=== PATIENT | male | born 1955 | race Two or more races ===

== ENCOUNTER 2016-09-29 05:05 | Inpatient (IN) | payer MEDICAID ==
[2016-09-29] VITALS (11 sets, daily range): BP systolic 96–145; BP diastolic 65–87
[~2016-09-29] VITALS: Ht 167.6 cm; Wt 81.6 kg
[2016-09-29] MEDS ORDERED: LORazepam Inj 2mg/ml 1ml IV ONE (05:15)
[2016-09-29] MEDS ORDERED: Pantoprazole Inj IVP ONE (05:15)
--- NOTE | 2016-09-29 05:32 | Emergency Room Report ---
History of Present Illness General Chief Complaint: Abdominal Pain Source: Patient (SARINA MOORE M.D.) Present Illness HPI This is a 61-year-old male with history of alcoholism. His been drinking heavily for 20 days in a row. He quit yesterday. Now he complaining of feeling shaky, nauseous with vomiting. Also with burning pain upper quadrant. Denies any fever chills denies diarrhea. Vomiting is nonbloody nonbilious. Not suicidal or homicidal. (SARINA MOORE M.D.) Allergies: Coded Allergies: No Known Allergies (Unverified , 09/29/16) Patient History Past Medical History: see triage record, old chart reviewed Past Surgical History: other Pertinent Family History: none Social History: Reports: alcohol use Immunizations: other Reviewed Nursing Documentation: PMH: Agreed, PSxH: Agreed (SARINA MOORE M.D.) Nursing Documentation-PMH Hx Hypertension: Yes (SARINA MOORE M.D.) Review of Systems Eye: Denies: blurred vision, eye pain ENT: Denies: ear pain, nose congestion, throat swelling Respiratory: Denies: cough, shortness of breath Cardiovascular: Denies: chest pain, palpitations Gastrointestinal: Reports: abdominal pain, nausea, vomiting, Denies: diarrhea Musculoskeletal: Denies: back pain, joint pain Skin: Denies: rash Neurological: Denies: headache, numbness Endocrine: Denies: increased thirst, increased urine Hematologic/Lymphatic: Denies: easy bruising All Other Systems: negative except mentioned in HPI (SARINA MOORE M.D.) Physical Exam Vital Signs Date Time Temp Pulse Resp B/P Pulse Ox O2 Delivery O2 Flow Rate FiO2 09/29/16 05:00 97.9 128 14 105/75 99 Room Air vitals with tachycardia [id number] EP Interpretation: reviewed, normal General Appearance: well appearing, alert, mild distress Head: normocephalic, atraumatic Eyes: bilateral eye EOMI, bilateral eye PERRL ENT: hearing grossly normal, normal pharynx Neck: full range of motion, supple, no meningismus Respiratory: chest non-tender, lungs clear, normal breath sounds Cardiovascular #1: regular rate, rhythm, no murmur, tachycardia Gastrointestinal: normal bowel sounds, non tender, no mass, no organomegaly, no bruit, non-distended Musculoskeletal: back normal, gait/station normal, normal range of motion Neurologic: alert, oriented x3, other - Patient is tremulous Psychiatric: mood/affect normal Skin: warm/dry (SARINA MOORE M.D.) Procedures Critical Care Time Critical Care Time Critical care is mandated in this patient who presented with alcohol w/d syndrome and developed rapid afib. Patient require my urgent intervention to attenuate the risks of metabolic collapse which may lead to cardiovascular collapse and . Critical care time is 35 minutes excluding any reportable procedure. Critical care time included evaluation, multiple reevaluation, looking at old charts, interpreting laboratory and diagnostic data, discussing case with patient and family and consultants, and charting. (SARINA MOORE M.D.) Medical Decision Making Diagnostic Impression: Primary Impression: Alcohol withdrawal syndrome Qualified Codes: F10.230 - Alcohol dependence with withdrawal, uncomplicated Additional Impressions: Atrial fibrillation with RVR Alcoholic hepatitis without ascites Proteinuria ER Course Patient present with alcohol withdrawal syndrome. Tremulous control with Ativan. He then develop rapid atrial fibrillation. We'll give Cardizem for rate control. Patient be admitted. No evidence of acute abdomen. No evidence of neurological deficit. Will admit or transfer for cardiac monitoring. Laboratory Tests Test 09/29/16 05:21 09/29/16 05:22 Urine Color Yellow Urine Appearance Clear Urine pH 6 (4.5-8.0) Urine Specific [place] 1.010 (1.005-1.035) Urine Protein 2+ (NEGATIVE) H Urine Glucose (UA) Negative (NEGATIVE) Urine Ketones 3+ (NEGATIVE) H Urine Occult Blood Negative (NEGATIVE) Urine Nitrite Negative (NEGATIVE) Urine Bilirubin 1+ (NEGATIVE) H Urine Ictotest Neg Urine Urobilinogen 4 MG/DL (0.0-1.0) H Urine Leukocyte Esterase 1+ (NEGATIVE) H Urine RBC 0-2 /HPF (0 - 0) H Urine WBC 2-4 /HPF (0 - 0) Urine Squamous Epithelial Cells Few /LPF (NONE/OCC) Urine Bacteria Occasional /HPF (NONE) White Blood Count 9.6 K/UL (4.8-10.8) Red Blood Count 5.23 M/UL (4.70-6.10) Hemoglobin 17.3 G/DL (14.2-18.0) Hematocrit 50.1 % (42.0-52.0) Mean Corpuscular Volume 96 FL (80-99) Mean Corpuscular Hemoglobin 33.0 PG (27.0-31.0) H Mean Corpuscular Hemoglobin Concent 34.4 G/DL (32.0-36.0) Red Cell Distribution Width 14.0 % (11.6-14.8) Platelet Count 203 K/UL (150-450) Mean Platelet Volume 6.7 FL (6.5-10.1) Neutrophils (%) (Auto) 48.9 % (45.0-75.0) Lymphocytes (%) (Auto) 39.4 % (20.0-45.0) Monocytes (%) (Auto) 9.1 % (1.0-10.0) Eosinophils (%) (Auto) 1.0 % (0.0-3.0) Basophils (%) (Auto) 1.6 % (0.0-2.0) Prothrombin Time 10.7 SEC (9.30-11.50) Prothromb Time International Ratio 1.1 (0.9-1.1) Activated Partial Thromboplast Time 24 SEC (23-33) Sodium Level 135 mEQ/L (135-145) Potassium Level 3.9 mEQ/L (3.4-4.9) Chloride Level 88 mEQ/L (98-107) L Carbon Dioxide Level 24 mEQ/L (20-30) Anion Gap 23 (5-15) H Blood Urea Nitrogen 8 mg/dL (7-23) Creatinine 0.9 mg/dL (0.7-1.2) Estimat Glomerular Filtration Rate > 60 mL/min (>60) Glucose Level 127 mg/dL (74-106) H Calcium Level 9.8 mg/dL (8.6-10.2) Total Bilirubin 1.0 mg/dL (0.0-1.2) Aspartate Amino Transf (AST/SGOT) 184 U/L (5-40) H Alanine Aminotransferase (ALT/SGPT) 171 U/L (3-41) H Alkaline Phosphatase 63 U/L (40-129) Troponin I Pending Total Protein 8.0 g/dL (6.6-8.7) Albumin 4.1 g/dL (3.5-5.2) Globulin 3.9 g/dL Albumin/Globulin Ratio 1.0 (1.0-2.7) Lipase 52 U/L (< 60) Lab Results Impression labs unremarkable (SARINA MOORE M.D.) ER Course The patient was endorsed to me by Dr. Moore. The patient noted have the atrial fibrillation with rapid ventricular response. The patient was noted to have a rhythm strip with atrial fibrillation with a rate in the 150s. This responded nicely to Cardizem. Patient was given by mouth Librium. Laboratory testing showed evidence of hepatitis which likely alcohol related. The patient had recurrence of tachycardia and was subsequently given a loading dose of digoxin 0.5 mg for rate control. Dr. Elie Barber was contacted for inpatient management Labs Test 09/29/16 05:21 09/29/16 05:22 Urine Color Yellow Urine Appearance Clear Urine pH 6 (4.5-8.0) Urine Specific [place] 1.010 (1.005-1.035) Urine Protein 2+ (NEGATIVE) Urine Glucose (UA) Negative (NEGATIVE) Urine Ketones 3+ (NEGATIVE) Urine Occult Blood Negative (NEGATIVE) Urine Nitrite Negative (NEGATIVE) Urine Bilirubin 1+ (NEGATIVE) Urine Ictotest Neg Urine Urobilinogen 4 MG/DL (0.0-1.0) Urine Leukocyte Esterase 1+ (NEGATIVE) Urine RBC 0-2 /HPF (0 - 0) Urine WBC 2-4 /HPF (0 - 0) Urine Squamous Epithelial Cells Few /LPF (NONE/OCC) Urine Bacteria Occasional /HPF (NONE) White Blood Count 9.6 K/UL (4.8-10.8) Red Blood Count 5.23 M/UL (4.70-6.10) Hemoglobin 17.3 G/DL (14.2-18.0) Hematocrit 50.1 % (42.0-52.0) Mean Corpuscular Volume 96 FL (80-99) Mean Corpuscular Hemoglobin 33.0 PG (27.0-31.0) Mean Corpuscular Hemoglobin Concent 34.4 G/DL (32.0-36.0) Red Cell Distribution Width 14.0 % (11.6-14.8) Platelet Count 203 K/UL (150-450) Mean Platelet Volume 6.7 FL (6.5-10.1) Neutrophils (%) (Auto) 48.9 % (45.0-75.0) Lymphocytes (%) (Auto) 39.4 % (20.0-45.0) Monocytes (%) (Auto) 9.1 % (1.0-10.0) Eosinophils (%) (Auto) 1.0 % (0.0-3.0) Basophils (%) (Auto) 1.6 % (0.0-2.0) Prothrombin Time 10.7 SEC (9.30-11.50) Prothromb Time International Ratio 1.1 (0.9-1.1) Activated Partial Thromboplast Time 24 SEC (23-33) Sodium Level 135 mEQ/L (135-145) Potassium Level 3.9 mEQ/L (3.4-4.9) Chloride Level 88 mEQ/L (98-107) Carbon Dioxide Level 24 mEQ/L (20-30) Anion Gap 23 (5-15) Blood Urea Nitrogen 8 mg/dL (7-23) Creatinine 0.9 mg/dL (0.7-1.2) Estimat Glomerular Filtration Rate > 60 mL/min (>60) Glucose Level 127 mg/dL (74-106) Calcium Level 9.8 mg/dL (8.6-10.2) Total Bilirubin 1.0 mg/dL (0.0-1.2) Aspartate Amino Transf (AST/SGOT) 184 U/L (5-40) Alanine Aminotransferase (ALT/SGPT) 171 U/L (3-41) Alkaline Phosphatase 63 U/L (40-129) Troponin I < 0.30 ng/mL (<=0.30) Total Protein 8.0 g/dL (6.6-8.7) Albumin 4.1 g/dL (3.5-5.2) Globulin 3.9 g/dL Albumin/Globulin Ratio 1.0 (1.0-2.7) Lipase 52 U/L (< 60) (Alex Méndez) EKG Diagnostic Results Rate: tachycardiac Rhythm: other - Rapid A. fib ST Segments: other - No specific ST changes (SARINA MOORE M.D.) Rhythm Strip Diag. Results EP Interpretation: yes Rate: 120 Rhythm: no PVC's, no ectopy, other - A. fib (SARINA MOORE M.D.) Chest X-Ray Diagnostic Results EP Interpretation: Yes Findings: no consolidation, no effusion, no pneumothorax, no acute cardiopulmonary disease Number of Views: 1 (SARINA MOORE M.D.) Last Vital Signs Date Time Temp Pulse Resp B/P Pulse Ox O2 Delivery O2 Flow Rate FiO2 09/29/16 05:00 97.9 128 14 105/75 99 Room Air Status: improved (SARINA MOORE M.D.) Status: improved (Alex Méndez) Disposition: ADMITTED INPATIENT Condition: Serious SARINA MOORE M.D. Sep 29, 2016 05:31 Alex Méndez Sep 29, 2016 07:36
[2016-09-29 05:40] LABS: APPEARANCE,URINE CLEAR; KETONES,URINE 3+ (NEGATIVE); LEUKOCYTE ESTERASE ,URINE 1+ (NEGATIVE); NITRITE,URINE NEGATIVE (NEGATIVE); PH,URINE 6 (4.5-8.0); PROTEIN,URINE 2+ (NEGATIVE); UROBILINOGEN,URINE 4 MG/DL (0.0-1.0)
[2016-09-29 05:41] LABS: BASOPHILS % (AUTO) 1.6 % (0.0-2.0); LYMPHOCYTES % (AUTO) 39.4 % (20.0-45.0); MEAN CORPUSCULAR HGB CONC 34.4 G/DL (32.0-36.0); MEAN CORPUSCULAR VOLUME 96 FL (80-99); MEAN PLATELET VOLUME 6.7 FL (6.5-10.1); MONOCYTES % (AUTO) 9.1 % (1.0-10.0); NEUTROPHILS % (AUTO) 48.9 % (45.0-75.0); PLATELET COUNT 203 K/UL (150-450); RED BLOOD COUNT 5.23 M/UL (4.70-6.10); WHITE BLOOD COUNT 9.6 K/UL (4.8-10.8)
[2016-09-29 05:45] LABS: INR 1.1 (0.9-1.1); PROTHROMBIN TIME 10.7 SEC (9.30-11.50)
[2016-09-29 05:53] LABS: ALANINE AMINOTRANSFERASE 171 U/L (3-41); ANION GAP 23 (5-15); ASPARTATE AMINO TRANSFERASE 184 U/L (5-40); CALCIUM 9.8 mg/dL (8.6-10.2); CARBON DIOXIDE 24 mEQ/L (20-30); CHLORIDE 88 mEQ/L (98-107); CREATININE 0.9 mg/dL (0.7-1.2); GLOMERULAR FILTRATION RATE > 60 mL/min (>60); HEMOLYSIS 31; LIPASE 52 U/L (< 60); POTASSIUM 3.9 mEQ/L (3.4-4.9); SODIUM 135 mEQ/L (135-145)
[2016-09-29 05:56] LABS: BACTERIA,URINE OCCASIONAL /HPF; ICTOTEST NEG; RBC,URINE 0-2 /HPF (0 - 0); SQUAMOUS EPITHELIAL CELL,UR FEW /LPF (NONE/OCC)
[2016-09-29] MEDS ORDERED: chlordiazePOXIDE 25mg Cap ORAL ONE (06:15)
[2016-09-29] MEDS ORDERED: Diltiazem 25mg/5ml IV ONE (06:15)
[2016-09-29 06:44] LABS: TROPONIN I < 0.30 ng/mL (<=0.30)
[2016-09-29] MEDS ORDERED: Digoxin 0.5mg/2ml Inj IVP ONE (08:30)
--- NOTE | 2016-09-29 10:35 | Diagnostic Imaging Report ---
Indication: SOB Technique: One view of the chest Comparison: none Findings: The heart is mildly enlarged. Lungs and pleural spaces are clear. Aorta is ectatic. Upper mediastinum is unremarkable Impression: No acute process Borderline cardiomegaly
[2016-09-29] MEDS ORDERED: D5 1/2NS 1,000 ML IV SCH (21:00)
[2016-09-29] MEDS: Metoprolol 25mg tab ORAL SCH (22:43)
[2016-09-29] MEDS: D5 1/2NS w/KCl 20mEq 1,000 ML IV SCH (22:45)
[2016-09-30 00:10] VITALS: BP 142/78
[2016-09-30 04:13] VITALS: BP 132/79
[2016-09-30 07:06] LABS: ALANINE AMINOTRANSFERASE 99 U/L (3-41); ALBUMIN/GLOBULIN RATIO 1.1 (1.0-2.7); ANION GAP 10 (5-15); ASPARTATE AMINO TRANSFERASE 86 U/L (5-40); CALCIUM 8.6 mg/dL (8.6-10.2); CARBON DIOXIDE 30 mEQ/L (20-30); CHLORIDE 98 mEQ/L (98-107); CREATININE 0.6 mg/dL (0.7-1.2); GLOMERULAR FILTRATION RATE > 60 mL/min (>60); HEMOLYSIS 3; MAGNESIUM 1.6 mg/dL (1.7-2.5); PHOSPHORUS 3.4 mg/dL (2.5-4.8); POTASSIUM 3.7 mEQ/L (3.4-4.9); SODIUM 138 mEQ/L (135-145); TOTAL PROTEIN 5.9 g/dL (6.6-8.7)
[2016-09-30 07:15] LABS: BASOPHILS % (AUTO) 1.2 % (0.0-2.0); EOSINOPHILS % (AUTO) 3.4 % (0.0-3.0); LYMPHOCYTES % (AUTO) 37.2 % (20.0-45.0); MEAN CORPUSCULAR HGB CONC 34.2 G/DL (32.0-36.0); MEAN CORPUSCULAR VOLUME 96 FL (80-99); MEAN PLATELET VOLUME 7.4 FL (6.5-10.1); MONOCYTES % (AUTO) 11.9 % (1.0-10.0); NEUTROPHILS % (AUTO) 46.3 % (45.0-75.0); PLATELET COUNT 160 K/UL (150-450); RED BLOOD COUNT 3.95 M/UL (4.70-6.10); RED CELL DISTRIBUTION WIDTH 14.6 % (11.6-14.8); WHITE BLOOD COUNT 4.9 K/UL (4.8-10.8)
[2016-09-30 08:00] VITALS: BP 144/96
[2016-09-30] MEDS ORDERED: Influenza Virus Vaccine 0.5ml IM ONE (10:00)
[2016-09-30] MEDS: Thiamine 100mg tab ORAL SCH (10:25)
[2016-09-30] MEDS: LORazepam 1mg tab ORAL SCH ×3 (10:25→17:34)
[2016-09-30] MEDS: Metoprolol 25mg tab ORAL SCH ×2 (10:25→21:12)
[2016-09-30] MEDS: D5 1/2NS w/KCl 20mEq 1,000 ML IV SCH (10:35)
[2016-09-30 12:00] VITALS: BP 128/79
--- NOTE | 2016-09-30 12:32 | History & Physical ---
History and Physical History & Physicial Dictated for Int Med-Dr Barber no. [id number]. MIKAELA REID Sep 30, 2016 12:32
--- NOTE | 2016-09-30 14:01 | General Progress Note ---
Assessment/Plan Problem List: (1) Afib ICD Codes: I48.91 - Unspecified atrial fibrillation SNOMED: 84405044 (2) ETOH withdrawal (3) Abdominal pain ICD Codes: R10.9 - Unspecified abdominal pain SNOMED: 13025016 Assessment/Plan stool for C.diff prn imodium thiamine monitor for W/D no need for steroids ppi bid Subjective ROS Limited/Unobtainable: Yes Allergies: Coded Allergies: No Known Allergies (Unverified , 09/29/16) Subjective c/o diarrhea Objective Last 24 Hour Vital Signs Date Time Temp Pulse Resp B/P Pulse Ox O2 Delivery O2 Flow Rate FiO2 09/30/16 12:00 98.1 72 18 128/79 100 Nasal Cannula 2.0 09/30/16 10:25 69 144/96 09/30/16 08:00 66 09/30/16 08:00 97.5 69 20 144/96 100 Nasal Cannula 2.0 09/30/16 04:13 98.6 59 20 132/79 99 Nasal Cannula 2.0 09/30/16 03:53 58 09/30/16 00:10 98.1 78 21 142/78 99 Nasal Cannula 2.0 09/29/16 23:53 66 09/29/16 22:43 70 137/79 09/29/16 20:00 70 09/29/16 20:00 98.2 73 19 137/79 98 Room Air 09/29/16 17:42 97.3 82 18 145/71 100 Nasal Cannula 2.0 09/29/16 17:00 97.3 82 18 145/71 100 Nasal Cannula 2.0 09/29/16 14:32 73 18 115/74 100 Nasal Cannula 2.0 Intake and Output 09/29/16 09/30/16 19:00 07:00 Intake Total 500 ml 1118 ml Output Total 1050 ml Balance 500 ml 68 ml Intake Oral 500 ml IV Total 500 ml 618 ml Output Urine Total 1050 ml Laboratory Tests 09/30/16 05:05: White Blood Count 4.9, Red Blood Count 3.95L, Hemoglobin 13.0L, Hematocrit 38.0L , Mean Corpuscular Volume 96, Mean Corpuscular Hemoglobin 33.0H, Mean Corpuscular Hemoglobin Concent 34.2, Red Cell Distribution Width 14.6, Platelet Count 160, Mean Platelet Volume 7.4, Neutrophils (%) (Auto) 46.3, Lymphocytes (% ) (Auto) 37.2, Monocytes (%) (Auto) 11.9H, Eosinophils (%) (Auto) 3.4H, Basophils (%) (Auto) 1.2, Sodium Level 138, Potassium Level 3.7, Chloride Level 98, Carbon Dioxide Level 30, Anion Gap 10, Blood Urea Nitrogen 11, Creatinine 0.6L, Estimat Glomerular Filtration Rate > 60, Glucose Level 92, Calcium Level 8.6, Phosphorus Level 3.4, Magnesium Level 1.6L, Total Bilirubin 0.7, Aspartate Amino Transf (AST/SGOT) 86H, Alanine Aminotransferase (ALT/SGPT) 99H, Alkaline Phosphatase 42, Total Protein 5.9L, Albumin 3.1L, Globulin 2.8, Albumin/ Globulin Ratio 1.1 Height (Feet): 5 Height (Inches): 6.00 Weight (Pounds): 180 Neck: supple Respiratory/Chest: decreased breath sounds Abdomen: normal bowel sounds, tender BERNIE JOHNSON Sep 30, 2016 14:00
[2016-09-30 16:00] VITALS: BP 127/78
[2016-09-30 20:00] VITALS: BP 114/72
[2016-09-30] MEDS: LORazepam Inj 2mg/ml 1ml IV PRN (20:59)
--- NOTE | 2016-09-30 23:07 | History and Physical Report ---
DATE OF ADMISSION: 09/30/2016 CHIEF COMPLAINT: The patient is a 61-year-old male, who presents with chief complaint of alcohol withdrawal. HISTORY OF PRESENT ILLNESS: The patient states that he has been drinking pretty much nonstop for the last 20 days. The patient drinks 6 to 8 tall beers daily. The patient last drank was on , 09/28/2016. The patient began to have uncontrollable shakes on Sunday09/29/2016. The patient presented to [facility]. The patient stated that he has had intractable nausea and vomiting since stopping drinking on 09/28/2016. The patient also has severe left upper quadrant abdominal pain. The patient was admitted for acute alcohol withdrawal symptoms. PAST MEDICAL HISTORY: Significant for hypertension. PAST SURGICAL HISTORY: The patient denies. CURRENT MEDICATIONS: The patient denies. ALLERGIES: No known drug allergies. SOCIAL HISTORY: The patient is single and is unemployed. The patient denies tobacco use. The patient admits to alcohol use as above. The patient denies other drugs abuse. REVIEW OF SYSTEMS: Constitutional: The patient denies weight loss or gain. The patient denies fevers or chills. HEENT: The patient denies ear or throat pain. The patient complains of headache. Abdomen: The patient complains of nausea and vomiting. The patient denies diarrhea or constipation. The patient complains of left upper quadrant abdominal pain. Genitourinary: The patient denies dysuria or increased frequency of urination. Neuromuscular: The patient denies seizures or generalized weakness. PHYSICAL EXAMINATION: VITAL SIGNS: Temperature is 97.5 to 98.6 degrees, respirations 20 to 21, pulse 58 to 78, and blood pressure 132-144/78-96. GENERAL: The patient is a well-developed and well-nourished male, in no apparent distress. HEENT: Eyes, pupils are equal and responsive to light and accommodation. Extraocular movements are intact. NECK: Supple without lymphadenopathy. CHEST: Lungs are clear to auscultation bilaterally without wheezes or rales. CARDIOVASCULAR: Regular rhythm and rate. S1 and S2 are normal without murmurs, rubs, or gallops. ABDOMEN: Soft, diffusely tender in the left upper quadrant. No rebound or guarding. Tender to palpation in the left upper quadrant, without masses. No evidence of hepatosplenomegaly. Currently no rebound or guarding. EXTREMITIES: Negative for clubbing, cyanosis, or edema. RECTAL/GENITAL: Refused. NEUROLOGIC: Cranial nerves II through XII are grossly intact without focal deficits. Motor strength is 5/5 bilaterally. Deep tendon reflexes are 2+ plantar. There is a resting tremor noted. LABORATORY STUDIES: WBC is 9.6, hemoglobin 17.2, hematocrit 50.1, and platelets 203,000. Sodium is 135, potassium 3.9, chloride 88, CO2 24, BUN 8, creatinine 0.9, and glucose 127. Serum lipase is normal at 52. Liver function tests are elevated with AST of 184 and ALT of 171. Chest x-ray was within normal limits. ASSESSMENT: This is a 61-year-old male, 1. Alcohol withdrawal. 2. Alcohol abuse. 3. Left upper quadrant abdominal pain. 4. Nausea with vomiting. 5. Elevated liver function tests. 6. Hypertension. TREATMENT: 1. Alcohol abuse/withdrawal. The patient has been placed on a protocol using Ativan p.r.n. for withdrawal tremors. This will be slight tapered during hospitalization. Neurontin has been added for seizure precautions. 2. Abdominal pain. This is left upper quadrant pain. Initial lipase level was within normal limits. A Gastroenterology consultation will be obtained with Dr. Bebo Jackson. This may be secondary to alcoholic gastritis. The patient has been started on Protonix 40 mg twice daily. 3. Nausea with vomiting. The patient will be offered Zofran p.r.n. for nausea and vomiting. 4. Elevated liver function tests. This is probably secondary to acute alcoholism. We will follow recommendations of Gastroenterology. 5. Hypertension. This may be secondary to alcohol abuse. The patient has been started empirically on metoprolol 50 mg one tablet. The patient has been started on metoprolol 25 mg one tablet p.o. q.12 hours hypertension may be secondary to acute alcoholism. Deangelo Padilla M.D. DR: Theron JOB#: [id number] CC:
[2016-10-01] MEDS: D5 1/2NS w/KCl 20mEq 1,000 ML IV SCH ×3 (00:01→16:00)
[2016-10-01 04:00] VITALS: BP 125/76
[2016-10-01 07:54] LABS: BASOPHILS % (AUTO) 1.2 % (0.0-2.0); EOSINOPHILS % (AUTO) 2.8 % (0.0-3.0); LYMPHOCYTES % (AUTO) 42.6 % (20.0-45.0); MEAN CORPUSCULAR HEMOGLOBIN 31.7 PG (27.0-31.0); MEAN CORPUSCULAR HGB CONC 31.1 G/DL (32.0-36.0); MEAN CORPUSCULAR VOLUME 102 FL (80-99); MEAN PLATELET VOLUME 7.1 FL (6.5-10.1); MONOCYTES % (AUTO) 10.7 % (1.0-10.0); NEUTROPHILS % (AUTO) 42.7 % (45.0-75.0); PLATELET COUNT 164 K/UL (150-450); RED BLOOD COUNT 4.21 M/UL (4.70-6.10); RED CELL DISTRIBUTION WIDTH 14.7 % (11.6-14.8); WHITE BLOOD COUNT 5.1 K/UL (4.8-10.8)
[2016-10-01 08:11] LABS: AMYLASE 68 U/L (10-110); ANION GAP 10 (5-15); CALCIUM 8.9 mg/dL (8.6-10.2); CARBON DIOXIDE 29 mEQ/L (20-30); CHLORIDE 100 mEQ/L (98-107); CREATININE 0.7 mg/dL (0.7-1.2); GLOMERULAR FILTRATION RATE > 60 mL/min (>60); HEMOLYSIS 13; LIPASE 54 U/L (< 60); POTASSIUM 4.3 mEQ/L (3.4-4.9); SODIUM 139 mEQ/L (135-145)
[2016-10-01 08:16] LABS: BILIRUBIN,DIRECT 0.1 mg/dL (0.1-0.3); TOTAL PROTEIN 5.8 g/dL (6.6-8.7)
[2016-10-01] MEDS: Thiamine 100mg tab ORAL SCH (08:17)
[2016-10-01] MEDS: Metoprolol 25mg tab ORAL SCH ×2 (08:18→20:06)
[2016-10-01] MEDS: LORazepam 1mg tab ORAL SCH ×3 (08:19→17:21)
[2016-10-01 08:23] VITALS: BP 144/56
[2016-10-01 12:00] VITALS: BP 140/88
--- NOTE | 2016-10-01 12:19 | General Progress Note ---
Assessment/Plan Problem List: (1) Afib ICD Codes: I48.91 - Unspecified atrial fibrillation SNOMED: 50921844 (2) ETOH withdrawal (3) Abdominal pain ICD Codes: R10.9 - Unspecified abdominal pain SNOMED: 10768780 Assessment/Plan stool for C.diff prn imodium thiamine monitor for W/D no need for steroids ppi bid Subjective ROS Limited/Unobtainable: Yes Allergies: Coded Allergies: No Known Allergies (Unverified , 09/29/16) Subjective no event Objective Last 24 Hour Vital Signs Date Time Temp Pulse Resp B/P Pulse Ox O2 Delivery O2 Flow Rate FiO2 10/01/16 08:23 97.3 66 20 144/56 92 Room Air 10/01/16 08:18 56 125/76 10/01/16 08:00 76 10/01/16 04:00 97.5 56 20 125/76 100 Nasal Cannula 10/01/16 03:54 61 10/01/16 03:54 56 10/01/16 00:00 98.4 67 20 97 Room Air 09/30/16 23:53 63 09/30/16 21:12 74 114/72 09/30/16 20:00 97.8 74 20 114/72 98 Nasal Cannula 2.0 09/30/16 19:20 70 09/30/16 16:00 97.6 75 22 127/78 99 Nasal Cannula 2.0 09/30/16 16:00 76 Intake and Output 09/30/16 10/01/16 19:00 07:00 Intake Total 1755 ml 1160 ml Output Total 650 ml Balance 1755 ml 510 ml Intake Oral 780 ml 260 ml IV Total 975 ml 900 ml Output Urine Total 650 ml # Voids 4 1 # Bowel Movements 4 Laboratory Tests 10/01/16 06:00: White Blood Count 5.1, Red Blood Count 4.21L, Hemoglobin 13.3L, Hematocrit 42.8 , Mean Corpuscular Volume 102H, Mean Corpuscular Hemoglobin 31.7H, Mean Corpuscular Hemoglobin Concent 31.1L, Red Cell Distribution Width 14.7, Platelet Count 164, Mean Platelet Volume 7.1, Neutrophils (%) (Auto) 42.7L, Lymphocytes (%) (Auto) 42.6, Monocytes (%) (Auto) 10.7H, Eosinophils (%) (Auto) 2.8, Basophils (%) (Auto) 1.2, Sodium Level 139, Potassium Level 4.3, Chloride Level 100, Carbon Dioxide Level 29, Anion Gap 10, Blood Urea Nitrogen 12, Creatinine 0.7, Estimat Glomerular Filtration Rate > 60, Glucose Level 108H, Calcium Level 8.9, Total Bilirubin 0.5, Direct Bilirubin 0.1, Aspartate Amino Transf (AST/SGOT) 50H, Alanine Aminotransferase (ALT/SGPT) 75H, Alkaline Phosphatase 43, Total Protein 5.8L, Albumin 3.4L, Amylase Level 68, Lipase 54 Height (Feet): 5 Height (Inches): 6.00 Weight (Pounds): 180 General Appearance: alert EENT: PERRL/EOMI Neck: supple Cardiovascular: normal rate Respiratory/Chest: lungs clear Abdomen: normal bowel sounds, non tender, soft Extremities: non-tender BERNIE JOHNSON Oct 01, 2016 12:19
--- NOTE | 2016-10-01 14:54 | Cardiology Report ---
APPROVED REPORT EKG Measurement Heart [id number] Poor data quality, interpretation may be adversely affected Atrial fibrillation with rapid ventricular response Nonspecific ST abnormality Abnormal ECG
[2016-10-01 16:00] VITALS: BP 121/79
--- NOTE | 2016-10-01 16:14 | Internal Med Progress Note ---
Subjective Date of Service: Oct 01, 2016 Physician Name Deangelo Reid Attending Physician Elie Barber MD Current Medications Medications (Trade) Dose Ordered Sig/Meg Route PRN Reason Start Time Stop Time Status Last Admin Dose Admin Acetaminophen (Tylenol) 650 mg Q6H PRN ORAL Mild Pain/Temp > 100.5 09/29/16 20:15 10/29/16 20:14 10/01/16 13:50 Dextrose/ Electrolytes (D5 0.45%NS W/ KCl 20mEq) 1,000 ml @ 75 mls/hr [id number] IV 09/29/16 21:15 10/29/16 21:14 10/01/16 13:51 Folic Acid (Folate) 1 mg DAILY ORAL 09/30/16 09:00 10/30/16 08:59 10/01/16 08:19 Gabapentin (Neurontin) 300 mg THREE TIMES A DAY ORAL 09/30/16 13:00 10/30/16 12:59 10/01/16 13:50 Loperamide HCl (Imodium) 2 mg Q6H PRN NG Diarrhea 09/30/16 14:00 10/30/16 13:59 10/01/16 08:19 Lorazepam (Ativan 2mg/ml 1ml) 1 mg Q4H PRN IV ETOH WITHDRAWAL 09/29/16 20:15 10/06/16 20:14 09/30/16 20:59 Lorazepam (Ativan) 1 mg THREE TIMES A DAY ORAL 09/30/16 09:00 10/07/16 08:59 10/01/16 12:54 Metoprolol Tartrate (Lopressor) 25 mg Q12HR ORAL 09/29/16 21:00 10/29/16 20:59 10/01/16 08:18 Ondansetron HCl 4 mg 4 mg Q4HR PRN IVP Nausea & Vomiting 09/29/16 20:15 10/29/16 20:14 Pantoprazole (Protonix) 40 mg EVERY 12 HOURS ORAL 09/30/16 12:30 10/30/16 12:29 10/01/16 08:18 Thiamine HCl (Vitamin B1) 100 mg DAILY ORAL 09/30/16 09:00 10/30/16 08:59 10/01/16 08:17 Allergies: Coded Allergies: No Known Allergies (Unverified , 09/29/16) ROS Limited/Unobtainable: No Constitutional: Reports: no symptoms HEENT: Reports: no symptoms Cardiovascular: Reports: no symptoms Respiratory: Reports: no symptoms Gastrointestinal/Abdominal: Reports: abdominal pain Genitourinary: Reports: no symptoms Neurologic/Psychiatric: Reports: no symptoms Subjective 61 YO M admitted for alcohol abuse/withdrawal. Cover fro Int Med-Dr Barber. C/ O resting tremors Objective Last Vital Signs Date Time Temp Pulse Resp B/P Pulse Ox O2 Delivery O2 Flow Rate FiO2 10/01/16 08:23 97.3 66 20 144/56 92 Room Air 09/30/16 20:00 2.0 General Appearance: WD/WN, mild distress EENT: PERRL/EOMI, normal ENT inspection, TMs normal Neck: non-tender, normal alignment, supple, normal inspection Cardiovascular: normal peripheral pulses, normal rate, regular rhythm, no gallop/murmur, no JVD Respiratory/Chest: chest wall non-tender, normal breath sounds, no respiratory distress, no accessory muscle use Abdomen: normal bowel sounds, soft, no organomegaly, no mass, tender Extremities: normal range of motion, non-tender 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, no motor/sensory deficits, alert, oriented x 3, other - tremor Skin: normal pigmentation, warm/dry Laboratory Tests Test 10/01/16 06:00 White Blood Count 5.1 K/UL (4.8-10.8) Red Blood Count 4.21 M/UL (4.70-6.10) L Hemoglobin 13.3 G/DL (14.2-18.0) L Hematocrit 42.8 % (42.0-52.0) Mean Corpuscular Volume 102 FL (80-99) H Mean Corpuscular Hemoglobin 31.7 PG (27.0-31.0) H Mean Corpuscular Hemoglobin Concent 31.1 G/DL (32.0-36.0) L Red Cell Distribution Width 14.7 % (11.6-14.8) Platelet Count 164 K/UL (150-450) Mean Platelet Volume 7.1 FL (6.5-10.1) Neutrophils (%) (Auto) 42.7 % (45.0-75.0) L Lymphocytes (%) (Auto) 42.6 % (20.0-45.0) Monocytes (%) (Auto) 10.7 % (1.0-10.0) H Eosinophils (%) (Auto) 2.8 % (0.0-3.0) Basophils (%) (Auto) 1.2 % (0.0-2.0) Sodium Level 139 mEQ/L (135-145) Potassium Level 4.3 mEQ/L (3.4-4.9) Chloride Level 100 mEQ/L (98-107) Carbon Dioxide Level 29 mEQ/L (20-30) Anion Gap 10 (5-15) Blood Urea Nitrogen 12 mg/dL (7-23) Creatinine 0.7 mg/dL (0.7-1.2) Estimat Glomerular Filtration Rate > 60 mL/min (>60) Glucose Level 108 mg/dL (74-106) H Calcium Level 8.9 mg/dL (8.6-10.2) Total Bilirubin 0.5 mg/dL (0.0-1.2) Direct Bilirubin 0.1 mg/dL (0.1-0.3) Aspartate Amino Transf (AST/SGOT) 50 U/L (5-40) H Alanine Aminotransferase (ALT/SGPT) 75 U/L (3-41) H Alkaline Phosphatase 43 U/L (40-129) Total Protein 5.8 g/dL (6.6-8.7) L Albumin 3.4 g/dL (3.5-5.2) L Amylase Level 68 U/L (10-110) Lipase 54 U/L (< 60) Microbiology Date/Time Source Procedure Growth Status 10/01/16 08:00 Stool Clostridium difficile Toxin Assay - Final Complete Intake and Output 09/30/16 10/01/16 19:00 07:00 Intake Total 1755 ml 1160 ml Output Total 650 ml Balance 1755 ml 510 ml Intake Oral 780 ml 260 ml IV Total 975 ml 900 ml Output Urine Total 650 ml # Voids 4 1 # Bowel Movements 4 Assessment/Plan Problem List: (1) Nausea & vomiting (2) Elevated liver function tests (3) Hypertension Assessment & Plan: Cont metoprolol (4) Alcohol withdrawal (5) ETOH withdrawal Assessment & Plan: Continue prn ativan and neurontin for seizure precaution (6) Abdominal pain Assessment & Plan: See GI note. Cont protonix BID ?alcohol gastritis? Status: progressing DEANGELO REID Oct 01, 2016 16:14
[2016-10-01] MEDS: LORazepam Inj 2mg/ml 1ml IV PRN (19:57)
[2016-10-01 20:03] VITALS: BP 138/87
[2016-10-02] VITALS: BP 120/78
[2016-10-02] MEDS: D5 1/2NS w/KCl 20mEq 1,000 ML IV SCH ×3 (02:35→06:07)
[2016-10-02 04:00] VITALS: BP 153/94
[2016-10-02 08:10] LABS: EOSINOPHILS % (AUTO) 3.5 % (0.0-3.0); LYMPHOCYTES % (AUTO) 37.8 % (20.0-45.0); MEAN CORPUSCULAR HEMOGLOBIN 31.7 PG (27.0-31.0); MEAN CORPUSCULAR HGB CONC 31.6 G/DL (32.0-36.0); MEAN CORPUSCULAR VOLUME 101 FL (80-99); MEAN PLATELET VOLUME 6.8 FL (6.5-10.1); MONOCYTES % (AUTO) 12.3 % (1.0-10.0); NEUTROPHILS % (AUTO) 45.4 % (45.0-75.0); PLATELET COUNT 172 K/UL (150-450); RED BLOOD COUNT 4.06 M/UL (4.70-6.10); RED CELL DISTRIBUTION WIDTH 14.7 % (11.6-14.8); WHITE BLOOD COUNT 6.1 K/UL (4.8-10.8)
[2016-10-02] MEDS: Thiamine 100mg tab ORAL SCH (08:26)
[2016-10-02 08:27] LABS: ANION GAP 13 (5-15); CALCIUM 8.8 mg/dL (8.6-10.2); CARBON DIOXIDE 29 mEQ/L (20-30); CHLORIDE 98 mEQ/L (98-107); CREATININE 0.6 mg/dL (0.7-1.2); GLOMERULAR FILTRATION RATE > 60 mL/min (>60); HEMOLYSIS 7; POTASSIUM 3.6 mEQ/L (3.4-4.9); SODIUM 140 mEQ/L (135-145)
[2016-10-02] MEDS: LORazepam 1mg tab ORAL SCH ×3 (08:27→17:18)
[2016-10-02 08:33] VITALS: BP 159/91
[2016-10-02] MEDS: Metoprolol 25mg tab ORAL SCH ×2 (08:34→20:11)
[2016-10-02 12:00] VITALS: BP 120/61
--- NOTE | 2016-10-02 12:46 | Internal Med Progress Note ---
Subjective Date of Service: Oct 02, 2016 Physician Name Deangelo Reid Attending Physician Elie Barber MD Current Medications Medications (Trade) Dose Ordered Sig/Meg Route PRN Reason Start Time Stop Time Status Last Admin Dose Admin Acetaminophen (Tylenol) 650 mg Q6H PRN ORAL Mild Pain/Temp > 100.5 09/29/16 20:15 10/29/16 20:14 10/01/16 19:57 Dextrose/ Electrolytes (D5 0.45%NS W/ KCl 20mEq) 1,000 ml @ 75 mls/hr [id number] IV 09/29/16 21:15 10/29/16 21:14 10/02/16 05:52 Folic Acid (Folate) 1 mg DAILY ORAL 09/30/16 09:00 10/30/16 08:59 10/02/16 08:27 Gabapentin (Neurontin) 300 mg THREE TIMES A DAY ORAL 09/30/16 13:00 10/30/16 12:59 10/02/16 08:26 Loperamide HCl (Imodium) 2 mg Q6H PRN NG Diarrhea 09/30/16 14:00 10/30/16 13:59 10/01/16 08:19 Lorazepam (Ativan 2mg/ml 1ml) 1 mg Q4H PRN IV ETOH WITHDRAWAL 09/29/16 20:15 10/06/16 20:14 10/01/16 19:57 Lorazepam (Ativan) 1 mg THREE TIMES A DAY ORAL 09/30/16 09:00 10/07/16 08:59 10/02/16 08:27 Metoprolol Tartrate (Lopressor) 25 mg Q12HR ORAL 09/29/16 21:00 10/29/16 20:59 10/02/16 08:34 Ondansetron HCl 4 mg 4 mg Q4HR PRN IVP Nausea & Vomiting 09/29/16 20:15 10/29/16 20:14 10/02/16 08:27 Pantoprazole (Protonix) 40 mg EVERY 12 HOURS ORAL 09/30/16 12:30 10/30/16 12:29 10/02/16 08:27 Thiamine HCl (Vitamin B1) 100 mg DAILY ORAL 09/30/16 09:00 10/30/16 08:59 10/02/16 08:26 Allergies: Coded Allergies: No Known Allergies (Unverified , 1/6/17) ROS Limited/Unobtainable: No Constitutional: Reports: no symptoms HEENT: Reports: no symptoms Cardiovascular: Reports: no symptoms Respiratory: Reports: no symptoms Gastrointestinal/Abdominal: Reports: no symptoms Genitourinary: Reports: no symptoms Neurologic/Psychiatric: Reports: no symptoms Subjective 61 YO M admitted for alcohol abuse/withdrawal. Cover fro Int Med-Dr Barber. C/ O resting tremors Objective Last Vital Signs Date Time Temp Pulse Resp B/P Pulse Ox O2 Delivery O2 Flow Rate FiO2 10/02/16 08:34 73 159/91 10/02/16 04:00 97.7 18 96 Room Air 10/01/16 16:00 2.0 Laboratory Tests Test 10/02/16 06:35 White Blood Count 6.1 K/UL (4.8-10.8) Red Blood Count 4.06 M/UL (4.70-6.10) L Hemoglobin 12.9 G/DL (14.2-18.0) L Hematocrit 40.8 % (42.0-52.0) L Mean Corpuscular Volume 101 FL (80-99) H Mean Corpuscular Hemoglobin 31.7 PG (27.0-31.0) H Mean Corpuscular Hemoglobin Concent 31.6 G/DL (32.0-36.0) L Red Cell Distribution Width 14.7 % (11.6-14.8) Platelet Count 172 K/UL (150-450) Mean Platelet Volume 6.8 FL (6.5-10.1) Neutrophils (%) (Auto) 45.4 % (45.0-75.0) Lymphocytes (%) (Auto) 37.8 % (20.0-45.0) Monocytes (%) (Auto) 12.3 % (1.0-10.0) H Eosinophils (%) (Auto) 3.5 % (0.0-3.0) H Basophils (%) (Auto) 1.0 % (0.0-2.0) Sodium Level 140 mEQ/L (135-145) Potassium Level 3.6 mEQ/L (3.4-4.9) Chloride Level 98 mEQ/L (98-107) Carbon Dioxide Level 29 mEQ/L (20-30) Anion Gap 13 (5-15) Blood Urea Nitrogen 7 mg/dL (7-23) Creatinine 0.6 mg/dL (0.7-1.2) L Estimat Glomerular Filtration Rate > 60 mL/min (>60) Glucose Level 106 mg/dL (74-106) Calcium Level 8.8 mg/dL (8.6-10.2) Microbiology Date/Time Source Procedure Growth Status 10/01/16 08:00 Stool Clostridium difficile Toxin Assay - Final Complete Intake and Output 10/01/16 10/02/16 19:00 07:00 Intake Total 315 ml 1215 ml Output Total 1450 ml 1525 ml Balance -1135 ml -310 ml Intake Oral 240 ml 240 ml IV Total 75 ml 975 ml Output Urine Total 1300 ml 1375 ml Stool Total 150 ml 150 ml # Voids 3 3 # Bowel Movements 6 2 Objective General Appearance: WD/WN, mild distress EENT: PERRL/EOMI, normal ENT inspection, TMs normal Neck: non-tender, normal alignment, supple, normal inspection Cardiovascular: normal peripheral pulses, normal rate, regular rhythm, no gallop/murmur, no JVD Respiratory/Chest: chest wall non-tender, normal breath sounds, no respiratory distress, no accessory muscle use Abdomen: normal bowel sounds, soft, no organomegaly, no mass, tender Extremities: normal range of motion, non-tender 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 Cont protonix BID ?alcohol gastritis? Status: progressing Assessment/Plan Discharge planning: Home health DEANGELO REID Oct 02, 2016 12:46
--- NOTE | 2016-10-02 12:47 | GI Progress Note ---
Assessment/Plan Problems: (1) Elevated liver function tests ICD Codes: R94.5 - Abnormal results of liver function studies SNOMED: 543374069 (2) Nausea & vomiting ICD Codes: R11.2 - Nausea with vomiting, unspecified SNOMED: 96816831 (3) Alcohol withdrawal ICD Codes: F10.239 - Alcohol dependence with withdrawal, unspecified SNOMED: 096548632 (4) ETOH withdrawal (5) Abdominal pain ICD Codes: R10.9 - Unspecified abdominal pain SNOMED: 12826802 Status: stable, progressing Status Narrative Discussed with Dr. Jackson. Assessment/Plan stool for C.diff >> negative prn imodium thiamine monitor for W/D no need for steroids ppi daily lipase negative fu labs Subjective Gastrointestinal/Abdominal: Reports: no symptoms Objective Last 24 Hour Vital Signs Date Time Temp Pulse Resp B/P Pulse Ox O2 Delivery O2 Flow Rate FiO2 10/02/16 08:34 73 159/91 10/02/16 08:33 159/91 10/02/16 04:00 97.7 73 18 153/94 96 Room Air 10/02/16 03:40 65 10/02/16 00:00 97.8 67 20 120/78 98 10/01/16 23:45 70 10/01/16 20:06 76 138/87 10/01/16 20:05 98.2 10/01/16 20:03 76 20 138/87 Room Air 10/01/16 19:57 72 10/01/16 16:00 80 10/01/16 16:00 97.8 72 20 121/79 96 Nasal Cannula 2.0 Intake and Output 10/01/16 10/02/16 19:00 07:00 Intake Total 315 ml 1215 ml Output Total 1450 ml 1525 ml Balance -1135 ml -310 ml Intake Oral 240 ml 240 ml IV Total 75 ml 975 ml Output Urine Total 1300 ml 1375 ml Stool Total 150 ml 150 ml # Voids 3 3 # Bowel Movements 6 2 Laboratory Tests Test 10/02/16 06:35 White Blood Count 6.1 K/UL (4.8-10.8) Red Blood Count 4.06 M/UL (4.70-6.10) L Hemoglobin 12.9 G/DL (14.2-18.0) L Hematocrit 40.8 % (42.0-52.0) L Mean Corpuscular Volume 101 FL (80-99) H Mean Corpuscular Hemoglobin 31.7 PG (27.0-31.0) H Mean Corpuscular Hemoglobin Concent 31.6 G/DL (32.0-36.0) L Red Cell Distribution Width 14.7 % (11.6-14.8) Platelet Count 172 K/UL (150-450) Mean Platelet Volume 6.8 FL (6.5-10.1) Neutrophils (%) (Auto) 45.4 % (45.0-75.0) Lymphocytes (%) (Auto) 37.8 % (20.0-45.0) Monocytes (%) (Auto) 12.3 % (1.0-10.0) H Eosinophils (%) (Auto) 3.5 % (0.0-3.0) H Basophils (%) (Auto) 1.0 % (0.0-2.0) Sodium Level 140 mEQ/L (135-145) Potassium Level 3.6 mEQ/L (3.4-4.9) Chloride Level 98 mEQ/L (98-107) Carbon Dioxide Level 29 mEQ/L (20-30) Anion Gap 13 (5-15) Blood Urea Nitrogen 7 mg/dL (7-23) Creatinine 0.6 mg/dL (0.7-1.2) L Estimat Glomerular Filtration Rate > 60 mL/min (>60) Glucose Level 106 mg/dL (74-106) Calcium Level 8.8 mg/dL (8.6-10.2) Height (Feet): 5 Height (Inches): 6.00 Weight (Pounds): 180 General Appearance: no apparent distress, alert Cardiovascular: normal rate Respiratory/Chest: normal breath sounds, no respiratory distress Abdominal Exam: normal bowel sounds, non tender, soft Alondra Moore N.PNelly Oct 02, 2016 12:47
[2016-10-02 16:00] VITALS: BP 128/82
[2016-10-02 20:00] VITALS: BP 113/73
[2016-10-03 00:25] VITALS: BP 130/77
[2016-10-03] MEDS: D5 1/2NS w/KCl 20mEq 1,000 ML IV SCH (04:06)
[2016-10-03 04:08] VITALS: BP 115/62
[2016-10-03 08:15] VITALS: BP 139/87
[2016-10-03] MEDS: Thiamine 100mg tab ORAL SCH (09:09)
[2016-10-03] MEDS: Metoprolol 25mg tab ORAL SCH ×2 (09:10→21:32)
[2016-10-03] MEDS: LORazepam 1mg tab ORAL SCH ×3 (09:10→18:49)
[2016-10-03 09:26] LABS: BASOPHILS % (AUTO) 1.9 % (0.0-2.0); EOSINOPHILS % (AUTO) 4.1 % (0.0-3.0); LYMPHOCYTES % (AUTO) 35.4 % (20.0-45.0); MEAN CORPUSCULAR HEMOGLOBIN 31.6 PG (27.0-31.0); MEAN CORPUSCULAR HGB CONC 31.4 G/DL (32.0-36.0); MEAN CORPUSCULAR VOLUME 101 FL (80-99); MEAN PLATELET VOLUME 6.6 FL (6.5-10.1); MONOCYTES % (AUTO) 14.8 % (1.0-10.0); NEUTROPHILS % (AUTO) 43.8 % (45.0-75.0); PLATELET COUNT 190 K/UL (150-450); RED BLOOD COUNT 4.14 M/UL (4.70-6.10); RED CELL DISTRIBUTION WIDTH 14.4 % (11.6-14.8); WHITE BLOOD COUNT 5.3 K/UL (4.8-10.8)
[2016-10-03 09:36] LABS: ANION GAP 9 (5-15); CARBON DIOXIDE 31 mEQ/L (20-30); CHLORIDE 101 mEQ/L (98-107); CREATININE 0.6 mg/dL (0.7-1.2); GLOMERULAR FILTRATION RATE > 60 mL/min (>60); HEMOLYSIS 5; SODIUM 141 mEQ/L (135-145)
[2016-10-03 12:03] VITALS: BP 136/81
--- NOTE | 2016-10-03 13:21 | GI Progress Note ---
Assessment/Plan Problems: (1) Elevated liver function tests ICD Codes: R94.5 - Abnormal results of liver function studies SNOMED: 478193420 (2) Nausea & vomiting ICD Codes: R11.2 - Nausea with vomiting, unspecified SNOMED: 79664469 (3) Alcohol withdrawal ICD Codes: F10.239 - Alcohol dependence with withdrawal, unspecified SNOMED: 720076214 (4) ETOH withdrawal (5) Abdominal pain ICD Codes: R10.9 - Unspecified abdominal pain SNOMED: 09622664 Status: stable Status Narrative Discussed with Dr. Jackson. Assessment/Plan ok for DC per GI standpoint stool for C.diff >> negative prn imodium thiamine monitor for W/D no need for steroids ppi daily lipase negative fu labs Subjective Gastrointestinal/Abdominal: Reports: no symptoms Objective Last 24 Hour Vital Signs Date Time Temp Pulse Resp B/P Pulse Ox O2 Delivery O2 Flow Rate FiO2 10/03/16 12:03 97.5 69 18 136/81 95 Room Air 10/03/16 09:10 70 139/87 10/03/16 08:15 97.0 70 18 139/87 98 Room Air 10/03/16 04:08 98.3 59 19 115/62 95 Room Air 10/03/16 04:00 58 10/03/16 00:25 98.4 69 21 130/77 95 Room Air 10/03/16 00:00 66 10/02/16 20:11 82 112/75 10/02/16 20:00 98.0 71 18 113/73 97 Room Air 10/02/16 20:00 88 10/02/16 16:00 76 10/02/16 16:00 98.0 69 16 128/82 95 Room Air Intake and Output 10/02/16 10/03/16 19:00 07:00 Intake Total 1455 ml 775 ml Output Total 1060 ml 1100 ml Balance 395 ml -325 ml Intake Oral 1080 ml IV Total 375 ml 775 ml Output Urine Total 1060 ml 1100 ml # Voids 4 Laboratory Tests Test 10/03/16 08:55 White Blood Count 5.3 K/UL (4.8-10.8) Red Blood Count 4.14 M/UL (4.70-6.10) L Hemoglobin 13.1 G/DL (14.2-18.0) L Hematocrit 41.7 % (42.0-52.0) L Mean Corpuscular Volume 101 FL (80-99) H Mean Corpuscular Hemoglobin 31.6 PG (27.0-31.0) H Mean Corpuscular Hemoglobin Concent 31.4 G/DL (32.0-36.0) L Red Cell Distribution Width 14.4 % (11.6-14.8) Platelet Count 190 K/UL (150-450) Mean Platelet Volume 6.6 FL (6.5-10.1) Neutrophils (%) (Auto) 43.8 % (45.0-75.0) L Lymphocytes (%) (Auto) 35.4 % (20.0-45.0) Monocytes (%) (Auto) 14.8 % (1.0-10.0) H Eosinophils (%) (Auto) 4.1 % (0.0-3.0) H Basophils (%) (Auto) 1.9 % (0.0-2.0) Sodium Level 141 mEQ/L (135-145) Potassium Level 4.0 mEQ/L (3.4-4.9) Chloride Level 101 mEQ/L (98-107) Carbon Dioxide Level 31 mEQ/L (20-30) H Anion Gap 9 (5-15) Blood Urea Nitrogen 11 mg/dL (7-23) Creatinine 0.6 mg/dL (0.7-1.2) L Estimat Glomerular Filtration Rate > 60 mL/min (>60) Glucose Level 117 mg/dL (74-106) H Calcium Level 9.0 mg/dL (8.6-10.2) Height (Feet): 5 Height (Inches): 6.00 Weight (Pounds): 180 General Appearance: no apparent distress, alert Cardiovascular: normal rate Respiratory/Chest: normal breath sounds, no respiratory distress Abdominal Exam: normal bowel sounds, non tender, soft Extremities: normal range of motion Alondra Moore N.P. Oct 03, 2016 13:21
[2016-10-03 16:00] VITALS: BP 140/66
--- NOTE | 2016-10-03 17:45 | Internal Med Progress Note ---
Subjective Date of Service: Oct 03, 2016 Physician Name Mikaela Reid Attending Physician Elie Barber MD Current Medications Medications (Trade) Dose Ordered Sig/Meg Route PRN Reason Start Time Stop Time Status Last Admin Dose Admin Acetaminophen (Tylenol) 650 mg Q6H PRN ORAL Mild Pain/Temp > 100.5 09/29/16 20:15 10/29/16 20:14 10/03/16 11:34 Dextrose/ Electrolytes (D5 0.45%NS W/ KCl 20mEq) 1,000 ml @ 75 mls/hr [id number] IV 09/29/16 21:15 10/29/16 21:14 10/03/16 04:06 Folic Acid (Folate) 1 mg DAILY ORAL 09/30/16 09:00 10/30/16 08:59 10/03/16 09:10 Gabapentin (Neurontin) 300 mg THREE TIMES A DAY ORAL 09/30/16 13:00 10/30/16 12:59 10/03/16 12:48 Loperamide HCl (Imodium) 2 mg Q6H PRN NG Diarrhea 09/30/16 14:00 10/30/16 13:59 10/01/16 08:19 Lorazepam (Ativan 2mg/ml 1ml) 1 mg Q4H PRN IV ETOH WITHDRAWAL 09/29/16 20:15 10/06/16 20:14 10/01/16 19:57 Lorazepam (Ativan) 1 mg THREE TIMES A DAY ORAL 09/30/16 09:00 10/07/16 08:59 10/03/16 12:48 Metoprolol Tartrate (Lopressor) 25 mg Q12HR ORAL 09/29/16 21:00 10/29/16 20:59 10/03/16 09:10 Ondansetron HCl 4 mg 4 mg Q4HR PRN IVP Nausea & Vomiting 09/29/16 20:15 10/29/16 20:14 10/02/16 22:38 Pantoprazole (Protonix) 40 mg DAILY ORAL 10/03/16 09:00 11/02/16 08:59 10/03/16 09:09 Thiamine HCl (Vitamin B1) 100 mg DAILY ORAL 09/30/16 09:00 10/30/16 08:59 10/03/16 09:09 Allergies: Coded Allergies: No Known Allergies (Unverified , 09/29/16) ROS Limited/Unobtainable: No Constitutional: Reports: no symptoms HEENT: Reports: no symptoms Cardiovascular: Reports: no symptoms Respiratory: Reports: no symptoms Gastrointestinal/Abdominal: Reports: abdominal pain, nausea Genitourinary: Reports: no symptoms Neurologic/Psychiatric: Reports: no symptoms Subjective 61 YO M admitted for alcohol abuse/withdrawal. Cover fro Int Med-Dr Sunil. C/ O resting tremors Objective Last Vital Signs Date Time Temp Pulse Resp B/P Pulse Ox O2 Delivery O2 Flow Rate FiO2 10/03/16 16:00 97.9 71 18 140/66 96 Room Air 10/01/16 16:00 2.0 Laboratory Tests Test 10/03/16 08:55 White Blood Count 5.3 K/UL (4.8-10.8) Red Blood Count 4.14 M/UL (4.70-6.10) L Hemoglobin 13.1 G/DL (14.2-18.0) L Hematocrit 41.7 % (42.0-52.0) L Mean Corpuscular Volume 101 FL (80-99) H Mean Corpuscular Hemoglobin 31.6 PG (27.0-31.0) H Mean Corpuscular Hemoglobin Concent 31.4 G/DL (32.0-36.0) L Red Cell Distribution Width 14.4 % (11.6-14.8) Platelet Count 190 K/UL (150-450) Mean Platelet Volume 6.6 FL (6.5-10.1) Neutrophils (%) (Auto) 43.8 % (45.0-75.0) L Lymphocytes (%) (Auto) 35.4 % (20.0-45.0) Monocytes (%) (Auto) 14.8 % (1.0-10.0) H Eosinophils (%) (Auto) 4.1 % (0.0-3.0) H Basophils (%) (Auto) 1.9 % (0.0-2.0) Sodium Level 141 mEQ/L (135-145) Potassium Level 4.0 mEQ/L (3.4-4.9) Chloride Level 101 mEQ/L (98-107) Carbon Dioxide Level 31 mEQ/L (20-30) H Anion Gap 9 (5-15) Blood Urea Nitrogen 11 mg/dL (7-23) Creatinine 0.6 mg/dL (0.7-1.2) L Estimat Glomerular Filtration Rate > 60 mL/min (>60) Glucose Level 117 mg/dL (74-106) H Calcium Level 9.0 mg/dL (8.6-10.2) Microbiology Date/Time Source Procedure Growth Status 10/01/16 08:00 Stool Clostridium difficile Toxin Assay - Final Complete Intake and Output 10/02/16 10/03/16 19:00 07:00 Intake Total 1455 ml 775 ml Output Total 1060 ml 1100 ml Balance 395 ml -325 ml Intake Oral 1080 ml IV Total 375 ml 775 ml Output Urine Total 1060 ml 1100 ml # Voids 4 Objective General Appearance: WD/WN, mild distress EENT: PERRL/EOMI, normal ENT inspection, TMs normal Neck: non-tender, normal alignment, supple, normal inspection Cardiovascular: normal peripheral pulses, normal rate, regular rhythm, no gallop/murmur, no JVD Respiratory/Chest: chest wall non-tender, normal breath sounds, no respiratory distress, no accessory muscle use Abdomen: normal bowel sounds, soft, no organomegaly, no mass, tender Extremities: normal range of motion, non-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 Cont protonix BID ?alcohol gastritis? Status: progressing Assessment/Plan Discharge planning: Home health not covered by insurance. Patient lives alone. D/C in am 10/04/16 to home. MIKAELA REID Oct 03, 2016 17:45
[2016-10-03 20:00] VITALS: BP 127/82
[2016-10-04 00:10] VITALS: BP 126/80
[2016-10-04 04:08] VITALS: BP 137/83
[2016-10-04 07:35] LABS: BASOPHILS % (AUTO) 1.4 % (0.0-2.0); EOSINOPHILS % (AUTO) 4.3 % (0.0-3.0); LYMPHOCYTES % (AUTO) 34.2 % (20.0-45.0); MEAN CORPUSCULAR HGB CONC 31.8 G/DL (32.0-36.0); MEAN CORPUSCULAR VOLUME 100 FL (80-99); MEAN PLATELET VOLUME 6.5 FL (6.5-10.1); MONOCYTES % (AUTO) 15.7 % (1.0-10.0); NEUTROPHILS % (AUTO) 44.4 % (45.0-75.0); PLATELET COUNT 203 K/UL (150-450); RED CELL DISTRIBUTION WIDTH 14.3 % (11.6-14.8); WHITE BLOOD COUNT 5.4 K/UL (4.8-10.8)
[2016-10-04 07:45] LABS: ANION GAP 10 (5-15); CARBON DIOXIDE 31 mEQ/L (20-30); CHLORIDE 102 mEQ/L (98-107); CREATININE 0.6 mg/dL (0.7-1.2); GLOMERULAR FILTRATION RATE > 60 mL/min (>60); SODIUM 143 mEQ/L (135-145)
[2016-10-04 07:46] LABS: HEMOLYSIS 4
[2016-10-04 08:00] VITALS: BP 146/76
[2016-10-04] MEDS: Thiamine 100mg tab ORAL SCH (09:07)
[2016-10-04] MEDS: Metoprolol 25mg tab ORAL SCH ×2 (09:07→21:11)
[2016-10-04] MEDS: LORazepam 1mg tab ORAL SCH ×3 (09:24→18:40)
--- NOTE | 2016-10-04 11:39 | GI Progress Note ---
Assessment/Plan Problems: (1) Elevated liver function tests ICD Codes: R94.5 - Abnormal results of liver function studies SNOMED: 717370499 (2) Nausea & vomiting ICD Codes: R11.2 - Nausea with vomiting, unspecified SNOMED: 78685136 (3) Alcohol withdrawal ICD Codes: F10.239 - Alcohol dependence with withdrawal, unspecified SNOMED: 238372041 (4) ETOH withdrawal (5) Abdominal pain ICD Codes: R10.9 - Unspecified abdominal pain SNOMED: 68003355 Status: stable Status Narrative Discussed with Dr. Jackson. Assessment/Plan ok for DC per GI standpoint stool for C.diff >> negative prn Imodium thiamine monitor for W/D no need for steroids ppi daily lipase negative fu labs Subjective Subjective no GI symptoms pt c/o of BLE leg weakness/pain Objective Last 24 Hour Vital Signs Date Time Temp Pulse Resp B/P Pulse Ox O2 Delivery O2 Flow Rate FiO2 10/04/16 09:07 66 146/76 10/04/16 08:00 79 10/04/16 08:00 98.1 66 18 146/76 98 Room Air 10/04/16 04:08 98.3 58 19 137/83 98 Room Air 10/04/16 04:00 80 10/04/16 00:10 98.8 60 20 126/80 97 Room Air 10/04/16 00:00 62 10/03/16 21:32 78 127/82 10/03/16 20:00 80 10/03/16 20:00 97.9 78 18 127/82 97 Room Air 10/03/16 16:00 97.9 71 18 140/66 96 Room Air 10/03/16 12:03 97.5 69 18 136/81 95 Room Air 10/03/16 12:00 67 Intake and Output 10/03/16 10/04/16 19:00 07:00 Intake Total 1080 ml Output Total 650 ml Balance 430 ml Intake Oral 480 ml IV Total 600 ml Output Urine Total 650 ml # Voids 1 2 Laboratory Tests Test 10/04/16 05:45 White Blood Count 5.4 K/UL (4.8-10.8) Red Blood Count 4.00 M/UL (4.70-6.10) L Hemoglobin 12.8 G/DL (14.2-18.0) L Hematocrit 40.2 % (42.0-52.0) L Mean Corpuscular Volume 100 FL (80-99) H Mean Corpuscular Hemoglobin 32.0 PG (27.0-31.0) H Mean Corpuscular Hemoglobin Concent 31.8 G/DL (32.0-36.0) L Red Cell Distribution Width 14.3 % (11.6-14.8) Platelet Count 203 K/UL (150-450) Mean Platelet Volume 6.5 FL (6.5-10.1) Neutrophils (%) (Auto) 44.4 % (45.0-75.0) L Lymphocytes (%) (Auto) 34.2 % (20.0-45.0) Monocytes (%) (Auto) 15.7 % (1.0-10.0) H Eosinophils (%) (Auto) 4.3 % (0.0-3.0) H Basophils (%) (Auto) 1.4 % (0.0-2.0) Sodium Level 143 mEQ/L (135-145) Potassium Level 4.0 mEQ/L (3.4-4.9) Chloride Level 102 mEQ/L (98-107) Carbon Dioxide Level 31 mEQ/L (20-30) H Anion Gap 10 (5-15) Blood Urea Nitrogen 11 mg/dL (7-23) Creatinine 0.6 mg/dL (0.7-1.2) L Estimat Glomerular Filtration Rate > 60 mL/min (>60) Glucose Level 95 mg/dL (74-106) Calcium Level 9.0 mg/dL (8.6-10.2) Height (Feet): 5 Height (Inches): 6.00 Weight (Pounds): 180 General Appearance: no apparent distress, alert Cardiovascular: normal rate Respiratory/Chest: normal breath sounds, no respiratory distress Abdominal Exam: normal bowel sounds, non tender Alondra Moore N.P. Oct 04, 2016 11:39
[2016-10-04 12:10] VITALS: BP 117/71
--- NOTE | 2016-10-04 13:33 | Discharge Summary ---
Discharge Summary Hospital Course Date of Admission Sep 29, 2016 at 06:38 Date of Discharge Admitting Diagnosis ALCOHOL WITHDRAWAL,A FIB HPI Elliot Paige is a 61 year old male who was admitted on Sep 29, 2016 at 06:38 for Alcohol Withdrawal, A Fib Hospital Course Dictated for Int Neel-Dr Barber no. [id number]. Discharge Discharge Disposition Patient was discharged to Discharge Diagnoses: MIKAELA REID Oct 04, 2016 13:33
[2016-10-04 16:00] VITALS: BP 131/78
[2016-10-04 20:00] VITALS: BP 147/45
[2016-10-05 00:06] VITALS: BP 141/79
[2016-10-05 04:05] VITALS: BP 123/61
--- NOTE | 2016-10-05 06:48 | Discharge Summary ---
DATE OF ADMISSION: 09/29/2016 DATE OF DISCHARGE: 10/04/2016 ADMITTING DIAGNOSES: 1. Alcohol abuse. 2. Alcohol withdrawal. 3. Abdominal pain. 4. Atrial fibrillation. 5. Nausea and vomiting. 6. Elevated liver function tests. 7. Hypertension. DISCHARGE DIAGNOSES: 1. Alcohol dependence, in remission. 2. Abdominal pain. 3. Atrial fibrillation. 4. Nausea with vomiting. 5. Elevated liver function tests. 6. Hypertension. HOSPITAL COURSE BY PROBLEM LIST: 1. Alcohol dependence/withdrawal. The patient was placed on a protocol using Ativan and Neurontin for seizure precautions. during the hospitalization. The patient has less today. The patient is to follow up with his primary care physician in one week. 2. Abdominal pain/nausea/vomiting/elevated liver function tests. A Gastroenterology consultation was obtained, Dr. Bebo Jackson. Abdominal pain was thought to be secondary to alcoholic gastritis. The patient is to follow up with his primary care physician in one week. The patient was placed on Protonix during the hospitalization. 3. Atrial fibrillation. This was thought to be secondary to " ." Atrial fibrillation has now resolved. The patient is to follow up with his primary care physician. 4. Hypertension. The patient was placed on clonidine 0.1 mg as needed systolic greater than 150 or diastolic greater than 100. The patient also was on Lopressor 25 mg one tablet p.o. twice daily. The patient is to follow up with his primary care physician in one week. DISCHARGE MEDICATIONS: Please refer to discharge medication list. DISCHARGE INSTRUCTIONS: The patient is discharged home today on 10/04/2016. The patient is to follow up with his primary care physician in one week. The patient was to have home health. The patient has restricted [employer]. According to case management, the patient is not eligible for home health at this time due to insurance reasons. Deangelo Padilla M.D. DR: CATIE JOB#: [id number] CC:
[2016-10-05 08:00] VITALS: BP 130/89
[2016-10-05] MEDS: LORazepam 1mg tab ORAL SCH (08:23)
[2016-10-05] MEDS: Thiamine 100mg tab ORAL SCH (08:23)
[2016-10-05 08:24] VITALS: BP 130/89
[2016-10-05] MEDS: Metoprolol 25mg tab ORAL SCH (08:24)
--- NOTE | 2016-10-05 13:31 | GI Progress Note ---
Assessment/Plan Problems: (1) Elevated liver function tests ICD Codes: R94.5 - Abnormal results of liver function studies SNOMED: 181522774 (2) Nausea & vomiting ICD Codes: R11.2 - Nausea with vomiting, unspecified SNOMED: 17740426 (3) Alcohol withdrawal ICD Codes: F10.239 - Alcohol dependence with withdrawal, unspecified SNOMED: 940395675 (4) ETOH withdrawal (5) Abdominal pain ICD Codes: R10.9 - Unspecified abdominal pain SNOMED: 15700030 Status: stable Status Narrative Discussed with Dr. Jackson. Assessment/Plan ok for DC per GI standpoint stool for C.diff >> negative prn Imodium thiamine monitor for W/D no need for steroids ppi daily lipase negative fu labs Subjective Gastrointestinal/Abdominal: Reports: no symptoms Subjective no GI symptoms Objective Last 24 Hour Vital Signs Date Time Temp Pulse Resp B/P Pulse Ox O2 Delivery O2 Flow Rate FiO2 10/05/16 08:24 76 130/89 10/05/16 08:00 97.3 76 18 130/89 97 Room Air 10/05/16 04:05 97.7 53 20 123/61 95 Room Air 10/05/16 00:06 97.0 61 20 141/79 96 Room Air 10/04/16 21:11 63 147/45 10/04/16 20:00 97.5 63 18 147/45 96 Room Air 10/04/16 16:00 97.7 62 18 131/78 95 Room Air Intake and Output 10/04/16 10/05/16 19:00 07:00 Intake Total 620 ml Output Total 800 ml 650 ml Balance -180 ml -650 ml Intake Oral 620 ml Output Urine Total 800 ml 650 ml # Voids 4 5 Height (Feet): 5 Height (Inches): 6.00 Weight (Pounds): 180 General Appearance: no apparent distress, alert Cardiovascular: normal rate, regular rhythm Respiratory/Chest: normal breath sounds, no respiratory distress Abdominal Exam: normal bowel sounds, non tender, soft Extremities: normal range of motion Alondra Moore N.P. Oct 05, 2016 13:31
--- NOTE | 2016-10-10 11:55 | Cardiology Report ---
APPROVED REPORT EXAM: Two-dimensional and M-mode echocardiogram with Doppler and color Doppler. INDICATION Atrial Fibrillation M-Mode DIMENSIONS IVSd1.0 (0.7-1.1cm)Left Atrium (MM)3.9 (1.6-4.0cm) LVDd6.1 (3.5-5.6cm)Aortic Root3.4 (2.0-3.7cm) PWd.9 (0.7-1.1cm)Aortic Cusp Exc.1.9 (1.5-2.0cm) LVDs5.2 (2.5-4.0cm) PWs1.0 cm Technically difficult study due to poor acoustic windows. Study quality precludes accurate assessment of regional wall motion. Left ventricular ejection fraction estimated to be mildy to moderately decreased Global left ventricular hypokinesis. No evidence of ventricular hypertrophy. No evidence pericardial fat or effusion. All other cardiac chamber sizes are within normal limits. Mild focal aortic valve sclerosis with adequate cusp excursion. Mildly thickened mitral valve leaflets with normal excursion. Mild mitral annulus and aortic root calcification. Pulmonic valve not well visualized. Normal tricuspid valve structure. IVC not obtainable. A color flow and spectral Doppler study was performed and revealed: No aortic regurgitation. Trace mitral regurgitation. Mitral diastolic velocities suggest reduced left ventricular relaxation (Grade I). Trace tricuspid regurgitation. Tricuspid systolic velocities suggests peak right ventricular systolic pressure of 16mmHg.
== END 2016-10-05 11:10 | disposition home or self-care (01) | DRG 775 ==
LOC: EDBD 05:05 → EMR 05:15 → EDBEDREQ 06:12 → 2E 06:38 → EDBEDREQ 12:14 → EMR 17:42
DX: F10.239 Alcohol dependence with withdrawal, unspecified (principal); K70.10 Alcoholic hepatitis without ascites; I48.91 Unspecified atrial fibrillation; R80.9 Proteinuria, unspecified; I10 Essential (primary) hypertension; Z23 Encounter for immunization
CPT/HCPCS: 36415; 71010; 80048; 80053; 80076; 81003; 82150; 82962; 83690; 83735; 84100; 84484; 85025; 85610; 85730; 87493; 93005; 93306; J2405; Q2036

== ENCOUNTER 2017-04-09 10:29 | Emergency (ER) | payer MEDICAID ==
[~2017-04-09] VITALS: Ht 165.1 cm; Wt 79.4 kg
[2017-04-09 10:35] VITALS: BP 152/86
[2017-04-09] MEDS ORDERED: htn med (10:42)
[2017-04-09] MEDS ORDERED: Lidocaine 2% Visc 15ml soln ORAL ONE (11:00)
[2017-04-09] MEDS ORDERED: Famotidine 20 MG/ 2ML VIAL IVP ONE (11:00)
[2017-04-09] MEDS ORDERED: Mylanta II UD 30ml ORAL ONE (11:00)
[2017-04-09] MEDS ORDERED: Tubing IV Cassette IV ONE (11:12)
[2017-04-09 11:23] LABS: APPEARANCE,URINE CLEAR; KETONES,URINE NEGATIVE (NEGATIVE); LEUKOCYTE ESTERASE ,URINE 1+ (NEGATIVE); NITRITE,URINE NEGATIVE (NEGATIVE); PH,URINE 6 (4.5-8.0); PROTEIN,URINE NEGATIVE (NEGATIVE); UROBILINOGEN,URINE NORMAL MG/DL (0.0-1.0)
[2017-04-09 11:26] LABS: EOSINOPHILS % (AUTO) 0.1 % (0.0-3.0); LYMPHOCYTES % (AUTO) 21.7 % (20.0-45.0); MEAN CORPUSCULAR HEMOGLOBIN 31.1 PG (27.0-31.0); MEAN CORPUSCULAR VOLUME 94 FL (80-99); MEAN PLATELET VOLUME 7.4 FL (6.5-10.1); MONOCYTES % (AUTO) 5.8 % (1.0-10.0); NEUTROPHILS % (AUTO) 71.5 % (45.0-75.0); PLATELET COUNT 222 K/UL (150-450); RED BLOOD COUNT 5.36 M/UL (4.70-6.10); RED CELL DISTRIBUTION WIDTH 12.3 % (11.6-14.8); WHITE BLOOD COUNT 6.5 K/UL (4.8-10.8)
[2017-04-09 11:34] LABS: BACTERIA,URINE FEW /HPF; RBC,URINE 0-2 /HPF (0 - 0); SQUAMOUS EPITHELIAL CELL,UR FEW /LPF (NONE/OCC); WBC,URINE 0-2 /HPF (0 - 0)
[2017-04-09 11:42] LABS: ALANINE AMINOTRANSFERASE 103 U/L (3-41); ALBUMIN/GLOBULIN RATIO 1.1 (1.0-2.7); ANION GAP 22 (5-15); ASPARTATE AMINO TRANSFERASE 177 U/L (5-40); CALCIUM 8.5 mg/dL (8.6-10.2); CARBON DIOXIDE 22 mEQ/L (20-30); CHLORIDE 91 mEQ/L (98-107); CREATININE 0.8 mg/dL (0.7-1.2); GLOMERULAR FILTRATION RATE > 60 mL/min (>60); HEMOLYSIS 9; LIPASE 22 U/L (< 60); POTASSIUM 3.3 mEQ/L (3.4-4.9); SODIUM 135 mEQ/L (135-145); TOTAL PROTEIN 7.4 g/dL (6.6-8.7)
[2017-04-09 12:00] VITALS: BP 162/86
[2017-04-09 12:04] LABS: BILIRUBIN,DIRECT 0.4 mg/dL (0.1-0.3)
[2017-04-09 14:00] VITALS: BP 143/81
[2017-04-09] MEDS ORDERED: PEPCID20 MG ORAL (14:01)
[2017-04-09] MEDS ORDERED: chlordiazePOXIDE 25mg Cap ORAL ONE (14:15)
[2017-04-09 14:35] VITALS: BP 143/81
--- NOTE | 2017-04-09 14:57 | Diagnostic Imaging Report ---
Indication:Abdominal pain elevated liver LFTs Technique: Grayscale and duplex Doppler imaging of the abdomen performed. Comparison: None Findings: Liver is enlarged measuring 19 cm and diffusely echogenic consistent with fatty infiltration. The demonstrated part of the pancreas, gallbladder, aorta and IVC, both kidneys, spleen appear unremarkable. There is no biliary ductal dilatation identified. CBD is 3.4 mm. Doppler evaluation of the main portal vein shows patency. There is no ascites. No hydronephrosis seen. Impression: Hepatomegaly with fatty infiltration.
--- NOTE | 2017-04-11 07:00 | Emergency Room Report ---
History of Present Illness General Chief Complaint: Abdominal Pain Source: Patient Present Illness HPI 62YOM walk-in with epigastric pain. Chronic ETOH abuse. Had quit drinking until 2 weeks ago and then went on 15 day "romero." Last drink yesterday. Has been admitted here previously for same. Saw GI, thought d/t ETOH gastritis. Denies nausea/vomiting, diarrhea, fever/chills, urinary complaints, previous surgery, other drugs. Allergies: Coded Allergies: No Known Allergies (Unverified , 09/29/16) Patient History Past Medical History: other - gastritis Past Surgical History: none Social History: Reports: alcohol use Immunizations: [facility] Nursing Documentation-[facility] Past Medical History: No History, Except For Hx Hypertension: Yes Hx Cancer: No Hx Gastrointestinal Problems: No Hx Neurological Problems: No Review of Systems All Other Systems: negative except mentioned in HPI Physical Exam Vital Signs Date Time Temp Pulse Resp B/P Pulse Ox O2 Delivery O2 Flow Rate FiO2 04/09/17 10:35 97.5 114 18 152/86 98 Room Air Sp02 EP Interpretation: reviewed, abnormal General Appearance: normal inspection, well appearing, no apparent distress, alert, GCS 15, non-toxic Head: normocephalic, atraumatic Eyes: bilateral eye EOMI, bilateral eye PERRL ENT: normal ENT inspection, hearing grossly normal, normal voice Neck: normal inspection, full range of motion, supple, no bony tend Respiratory: normal inspection, lungs clear, normal breath sounds, no respiratory distress, no retraction, no wheezing Cardiovascular #1: regular rate, rhythm, no edema Gastrointestinal: normal inspection, normal bowel sounds, non tender, soft, no guarding, no hernia Genitourinary: no CVA tenderness Musculoskeletal: normal inspection, back normal, normal range of motion, Tom' s Sign negative Neurologic: normal inspection, alert, oriented x3, responsive, equine pharmacology technician III-XII nml as tested, speech normal Psychiatric: normal inspection, judgement/insight normal, mood/affect normal Skin: normal inspection, normal color, no rash Lymphatic: normal inspection Medical Decision Making Diagnostic Impression: Primary Impression: Gastritis Qualified Codes: K29.20 - Alcoholic gastritis without bleeding ER Course Epigastric pain - Initial tachycardia improved after IVF, analgesia - Elevated LFTs so sono was done to eval for hetal but US showed only hepatomegaly with fatty infiltration - Abd benign, non-focal on serial exam after analgesia, GI Cocktail - Tolerating PO - Low suspicion for acute ETOH withdrawal but was given low dose librium prior to DC - Close PMD followup Advised against heavy drinking in the future Last Vital Signs Date Time Temp Pulse Resp B/P Pulse Ox O2 Delivery O2 Flow Rate FiO2 04/09/17 14:35 97.5 105 20 143/81 97 Room Air Status: improved Disposition: HOME, SELF-CARE Condition: Improved Scripts Famotidine (PEPCID) 20 Mg Tablet 20 MG ORAL BID for 7 Days, #14 TAB 0 Refills Prov: ARIE PERALTA M.D. 04/09/17 Patient Instructions: Gastritis, Adult Additional Instructions: - Take pepcid twice daily for 2 weeks - REFRAIN from heavy alcohol abuse - Follow up with primary care doctor ARIE PERALTA M.D. Apr 11, 2017 07:00
--- NOTE | 2017-04-11 16:53 | Cardiology Report ---
APPROVED REPORT EKG Measurement Heart [id number] Normal sinus rhythm Normal ECG
== END 2017-04-09 14:35 | disposition home or self-care (01) ==
LOC: EMR 11:00
DX: K29.20 Alcoholic gastritis without bleeding (principal); F10.10 Alcohol abuse, uncomplicated; I10 Essential (primary) hypertension; R00.0 Tachycardia, unspecified
CPT/HCPCS: 36415; 76700; 80053; 81003; 82248; 82962; 83690; 85025; 93005; 96374; 96375; 99284; J2405; S0028

== ENCOUNTER 2017-11-24 22:41 | Emergency (ER) | payer MEDICAID ==
[~2017-11-24] VITALS: Ht 157.5 cm; Wt 81.6 kg
[~2017-11-24 22:41] MED LIST: PEPCID20 MG ORAL; htn med
[2017-11-24 22:55] VITALS: BP 187/98
[2017-11-25] MEDS ORDERED: Lidocaine 2% Visc 15ml soln ORAL ONE (02:00)
[2017-11-25] MEDS ORDERED: Mylanta II UD 30ml ORAL ONE (02:00)
[2017-11-25 02:41] LABS: APPEARANCE,URINE CLEAR; BILIRUBIN, URINE NEGATIVE (NEGATIVE); COLOR,URINE YELLOW; GLUCOSE, URINE (UA) NEGATIVE (NEGATIVE); KETONES,URINE NEGATIVE (NEGATIVE); LEUKOCYTE ESTERASE ,URINE NEGATIVE (NEGATIVE); NITRITE,URINE NEGATIVE (NEGATIVE); PH,URINE 6.5 (4.5-8.0); PROTEIN,URINE NEGATIVE (NEGATIVE); UROBILINOGEN,URINE NORMAL MG/DL (0.0-1.0)
[2017-11-25 02:45] LABS: BASOPHILS % (AUTO) 0.8 % (0.0-2.0); EOSINOPHILS % (AUTO) 0.1 % (0.0-3.0); HEMATOCRIT 46.4 % (42.0-52.0); HEMOGLOBIN 16.5 G/DL (14.2-18.0); LYMPHOCYTES % (AUTO) 28.2 % (20.0-45.0); MEAN CORPUSCULAR VOLUME 89 FL (80-99); MONOCYTES % (AUTO) 6.2 % (1.0-10.0); NEUTROPHILS % (AUTO) 64.7 % (45.0-75.0); PLATELET COUNT 335 K/UL (150-450); RED CELL DISTRIBUTION WIDTH 12.4 % (11.6-14.8); WHITE BLOOD COUNT 7.5 K/UL (4.8-10.8)
[2017-11-25 02:47] LABS: ANION GAP 10 mmol/L (5-15); BLOOD UREA NITROGEN 17 mg/dL (7-18); CALCIUM 7.6 MG/DL (8.5-10.1); CARBON DIOXIDE 28 MMOL/L (21-32); CHLORIDE 96 MMOL/L (98-107); CREATININE 0.8 MG/DL (0.55-1.30); POTASSIUM 3.3 MMOL/L (3.5-5.1); SODIUM 134 MMOL/L (136-145)
[2017-11-25 02:57] LABS: ALANINE AMINOTRANSFERASE 64 U/L (12-78); ALBUMIN 3.3 G/DL (3.4-5.0); ALBUMIN/GLOBULIN RATIO 0.8 (1.0-2.7); ALKALINE PHOSPHATASE 64 U/L (46-116); ASPARTATE AMINO TRANSFERASE 50 U/L (15-37)
[2017-11-25] MEDS ORDERED: PEPCID40 MG PO (03:45)
[2017-11-25 04:00] VITALS: BP 187/98
--- NOTE | 2017-11-25 04:32 | Emergency Room Report ---
History of Present Illness General Chief Complaint: Vomiting Source: Patient Present Illness HPI 62-year-old male presents with 4 days of nausea, vomiting and epigastric pain States he had a binge with beer prior to onset of symptoms Has a history of chronic alcohol abuse As been here previously for similar, had prescription for Pepcid previously prescribed denies diarrhea, fever chills Allergies: Coded Allergies: No Known Allergies (Unverified , 09/29/16) Patient History Past Medical History: none Past Surgical History: none Pertinent Family History: none Social History: Reports: alcohol use Immunizations: UTD Reviewed Nursing Documentation: PMH: Agreed, PSxH: Agreed Nursing Documentation-PMH Past Medical History: No History, Except For Hx Hypertension: Yes Hx Cancer: No Hx Gastrointestinal Problems: No Hx Neurological Problems: No Review of Systems All Other Systems: negative except mentioned in HPI Physical Exam Vital Signs Date Time Temp Pulse Resp B/P (MAP) Pulse Ox O2 Delivery O2 Flow Rate FiO2 11/24/17 22:45 98 18 187/98 100 Sp02 EP Interpretation: reviewed, normal General Appearance: normal inspection, well appearing, no apparent distress, alert, GCS 15, non-toxic Head: normocephalic, atraumatic Eyes: bilateral eye PERRL, bilateral eye EOMI ENT: normal ENT inspection, hearing grossly normal, normal pharynx, no angioedema, normal voice, TMs + canals normal, uvula midline, moist mucus membranes Neck: normal inspection, full range of motion, supple, thyroid normal, no meningismus, no bony tend Respiratory: normal inspection, lungs clear, normal breath sounds, no rhonchi, no respiratory distress, no retraction, no accessory muscle use, no wheezing, speaking full sentences Cardiovascular #1: regular rate, rhythm, no edema, no JVD, normal capillary refill Gastrointestinal: normal inspection, normal bowel sounds, soft, no mass, no peritonitis, non-distended, no guarding, no hernia, no pulsatile mass, other - Epigastric tenderness Genitourinary: no CVA tenderness Musculoskeletal: normal inspection, back normal, normal range of motion, no calf tenderness, pelvis stable, Tom's Sign negative Neurologic: normal inspection, alert, oriented x3, responsive, underground mine 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 III-XII nml as tested, motor strength/tone normal, cerebellar normal, normal gait, speech normal Psychiatric: normal inspection, judgement/insight normal, mood/affect normal, no suicidal/homicidal ideation, no delusions Skin: normal inspection, normal color, no rash Lymphatic: normal inspection, no adenopathy Medical Decision Making Diagnostic Impression: Primary Impression: Gastritis Qualified Codes: K29.20 - Alcoholic gastritis without bleeding ER Course No signs stable, afebrile epigastric tenderness to palpation on exam Labs unremarkable - afebrile, H&H stable Lipase normal Feels better after GI Cocktail Rx pepcid Likely ETOH gastritis ER course: Patient has remained stable during ED stay. Disposition: Patient is to be discharged to home. Prescriptions given are pepcid Patient is instructed to follow up with their primary care doctor within 5 days. Strict return precautions discussed with patient such as fever, chills, worsening/severe pain, nausea, vomiting, which may indicate severe illness. Patient verbalizes understanding and agrees with plan. Please note that this Emergency Department Report was dictated using [employer] attendant technology software, occasionally this can lead to erroneous entry secondary to interpretation by the dictation equipment Last Vital Signs Date Time Temp Pulse Resp B/P (MAP) Pulse Ox O2 Delivery O2 Flow Rate FiO2 11/24/17 22:45 98 18 187/98 100 Status: improved Disposition: HOME, SELF-CARE Condition: Improved Scripts Famotidine (PEPCID) 40 Mg Tablet 40 MG PO DAILY, #14 TAB 0 Refills Prov: ARIE PERALTA M.D. 11/25/17 Referrals: NOT CHOSEN IPA/,REFERRING (PCP) Patient Instructions: Gastritis, Adult, [id number] ARIE PERALTA M.D. Nov 25, 2017 04:32
== END 2017-11-25 04:00 | disposition home or self-care (01) ==
LOC: EMR 23:15
DX: K29.20 Alcoholic gastritis without bleeding (principal); I10 Essential (primary) hypertension
CPT/HCPCS: 36415; 80053; 81003; 83690; 85025; 96374; 99284; J2405

== ENCOUNTER 2018-01-22 08:02 | Emergency (ER) | payer MEDICAID ==
[~2018-01-22] VITALS: Ht 162.6 cm; Wt 81.6 kg
[~2018-01-22 08:02] MED LIST changes: +PEPCID40 MG PO
[2018-01-22] MEDS ORDERED: AMLODIPINE BES2.5 MG ORAL (08:09)
--- NOTE | 2018-01-22 08:34 | Emergency Room Report ---
History of Present Illness General Chief Complaint: Vomiting Source: Patient Present Illness HPI 63-year-old male history of alcohol abuse p/w epigastric abd pain nausea and vomiting for 4 days. Patient states that he recently went on a 4 day drinking binge, Patient states pain started gradually , localized to epigastric area, non radiating, burning in nature, intermittent. No relieving or exacerbating factors. Admits to have this pain multiple times in the past.. Pt reports n/v, and 5 episodes of nbnb vomiting, denies diarrhea. States that he had one episode of black stool Denies fever, chills. No hx of abdominal surgeries. No hx of endoscopies/colonoscopies. Allergies: Coded Allergies: No Known Allergies (Unverified , 09/29/16) Patient History Past Medical History: see triage record Past Surgical History: none Pertinent Family History: none Reviewed Nursing Documentation: PMH: Agreed; PSxH: Agreed Nursing Documentation-PMH Hx Hypertension: Yes Hx Cancer: No Hx Gastrointestinal Problems: No Hx Neurological Problems: No Review of Systems All Other Systems: negative except mentioned in HPI Physical Exam Vital Signs Date Time Temp Pulse Resp B/P (MAP) Pulse Ox O2 Delivery O2 Flow Rate FiO2 01/22/18 08:06 98.1 124 18 130/89 100 Room Air 98.1 Sp02 EP Interpretation: reviewed, normal General Appearance: alert, GCS 15, non-toxic, mild distress Head: normocephalic, atraumatic Eyes: bilateral eye normal inspection, bilateral eye PERRL, bilateral eye EOMI ENT: normal ENT inspection, normal pharynx, normal voice, moist mucus membranes Neck: normal inspection, full range of motion, supple Respiratory: normal inspection, lungs clear, normal breath sounds, no respiratory distress, no retraction, no wheezing, speaking full sentences, chest symmetrical Cardiovascular #1: normal inspection, regular rate, rhythm, normal capillary refill Cardiovascular #2: 2+ radial (R), 2+ radial (L) Gastrointestinal: other - Mild epigastric pain without guarding or rigidity, no rebound, nontender elsewhere on abdomen Musculoskeletal: normal inspection, back normal, normal range of motion, non- tender Neurologic: normal inspection, alert, oriented x3, responsive, motor strength/ tone normal, sensory intact, normal gait, speech normal Psychiatric: normal inspection, judgement/insight normal, memory normal Skin: normal inspection, normal color, no rash, warm/dry, well hydrated, normal turgor Medical Decision Making Diagnostic Impression: Primary Impression: GIB (gastrointestinal bleeding) Additional Impressions: Abdominal pain Nausea & vomiting ER Course 63-year-old male with epigastric pain, recent alcohol binge Differential Diagnosis: Gastritis, gastroenteritis, peptic ulcer disease, UTI/pyelo Plan: Basic labs, ua, ekg Pepcid, Zofran, Protonix, IVF ER course: Patient has remained stable during ED stay. been observed over 3 hours with no symptoms Pain improved. Repeat abdominal exam is nontender. No episodes of vomiting here in the ER, no episodes of black stool. He appears nontoxic. Vital signs have been stable Patient is stable for discharge to home with close GI follow-up, instructed to abstain from all alcohol HR stable at 80 Disposition: Patient is to be discharged to home. Told to abstain from alcohol Strict return precautions discussed with patient such as fever, chills, worsening/severe abdominal pain, nausea, vomiting, black or bloody stools, which may indicate severe illness. Patient verbalizes understanding and agrees with plan. Please note that this Emergency Department Report was dictated using [employer] engineering manager technology software, occasionally this can lead to erroneous entry secondary to interpretation by the dictation equipment Laboratory Tests Test 01/22/18 08:50 White Blood Count 9.7 K/UL (4.8-10.8) Red Blood Count 5.55 M/UL (4.70-6.10) Hemoglobin 17.3 G/DL (14.2-18.0) Hematocrit 51.2 % (42.0-52.0) Mean Corpuscular Volume 92 FL (80-99) Mean Corpuscular Hemoglobin 31.2 PG (27.0-31.0) H Mean Corpuscular Hemoglobin Concent 33.9 G/DL (32.0-36.0) Red Cell Distribution Width 13.0 % (11.6-14.8) Platelet Count 327 K/UL (150-450) Mean Platelet Volume 5.7 FL (6.5-10.1) L Neutrophils (%) (Auto) 66.7 % (45.0-75.0) Lymphocytes (%) (Auto) 25.6 % (20.0-45.0) Monocytes (%) (Auto) 6.6 % (1.0-10.0) Eosinophils (%) (Auto) 0.4 % (0.0-3.0) Basophils (%) (Auto) 0.8 % (0.0-2.0) Prothrombin Time 10.7 SEC (9.30-11.50) Prothrombin Time INR 1.0 (0.9-1.1) PTT 28 SEC (23-33) Urine Color Pale yellow Urine Appearance Clear Urine pH 7 (4.5-8.0) Urine Specific [place] 1.010 (1.005-1.035) Urine Protein 1+ (NEGATIVE) H Urine Glucose (UA) Negative (NEGATIVE) Urine Ketones Negative (NEGATIVE) Urine Occult Blood Negative (NEGATIVE) Urine Nitrite Negative (NEGATIVE) Urine Bilirubin Negative (NEGATIVE) Urine Urobilinogen Normal MG/DL (0.0-1.0) Urine Leukocyte Esterase 1+ (NEGATIVE) H Urine RBC 0 /HPF (0 - 0) Urine WBC 0-2 /HPF (0 - 0) Urine Squamous Epithelial Cells Occasional /LPF Urine Bacteria Occasional /HPF (NONE) Sodium Level 135 MMOL/L (136-145) L Potassium Level 4.1 MMOL/L (3.5-5.1) Chloride Level 97 MMOL/L (98-107) L Carbon Dioxide Level 31 MMOL/L (21-32) Anion Gap 7 mmol/L (5-15) Blood Urea Nitrogen 17 mg/dL (7-18) Creatinine 1.0 MG/DL (0.55-1.30) Estimate Glomerular Filtration Rate > 60 mL/min (>60) Glucose Level 131 MG/DL (74-106) H Calcium Level 8.6 MG/DL (8.5-10.1) Total Bilirubin 0.8 MG/DL (0.2-1.0) Aspartate Amino Transferase (AST) 57 U/L (15-37) H Alanine Aminotransferase (ALT) 63 U/L (12-78) Alkaline Phosphatase 76 U/L (46-116) Total Protein 8.1 G/DL (6.4-8.2) Albumin 3.5 G/DL (3.4-5.0) Globulin 4.6 g/dL Albumin/Globulin Ratio 0.8 (1.0-2.7) L Lipase 92 U/L (73-393) Serum Alcohol < 3 mg/dL Last Vital Signs Date Time Temp Pulse Resp B/P (MAP) Pulse Ox O2 Delivery O2 Flow Rate FiO2 01/22/18 08:06 98.1 124 18 130/89 100 Room Air 98.1 Disposition: HOME, SELF-CARE Condition: Improved Scripts Famotidine (PEPCID AC) 20 Mg Tablet 20 MG PO QHS, #20 TAB Prov: Nic Diamond M.D. 01/22/18 Referrals: NOT CHOSEN IPA/,REFERRING (PCP) Nci Diamond M.D. January 22, 2018 08:34
[2018-01-22] MEDS ORDERED: Pantoprazole Inj IVP ONE (08:45)
[2018-01-22 08:58] VITALS: BP 156/87
[2018-01-22 09:13] LABS: APPEARANCE,URINE CLEAR; BASOPHILS % (AUTO) 0.8 % (0.0-2.0); BILIRUBIN, URINE NEGATIVE (NEGATIVE); COLOR,URINE PALE YELLOW; EOSINOPHILS % (AUTO) 0.4 % (0.0-3.0); GLUCOSE, URINE (UA) NEGATIVE (NEGATIVE); HEMATOCRIT 51.2 % (42.0-52.0); HEMOGLOBIN 17.3 G/DL (14.2-18.0); KETONES,URINE NEGATIVE (NEGATIVE); LEUKOCYTE ESTERASE ,URINE 1+ (NEGATIVE); LYMPHOCYTES % (AUTO) 25.6 % (20.0-45.0); MEAN CORPUSCULAR VOLUME 92 FL (80-99); MONOCYTES % (AUTO) 6.6 % (1.0-10.0); NEUTROPHILS % (AUTO) 66.7 % (45.0-75.0); NITRITE,URINE NEGATIVE (NEGATIVE); PH,URINE 7 (4.5-8.0); PLATELET COUNT 327 K/UL (150-450); PROTEIN,URINE 1+ (NEGATIVE); RED BLOOD COUNT 5.55 M/UL (4.70-6.10); UROBILINOGEN,URINE NORMAL MG/DL (0.0-1.0); WHITE BLOOD COUNT 9.7 K/UL (4.8-10.8)
[2018-01-22 09:22] LABS: ANION GAP 7 mmol/L (5-15); BLOOD UREA NITROGEN 17 mg/dL (7-18); CALCIUM 8.6 MG/DL (8.5-10.1); CARBON DIOXIDE 31 MMOL/L (21-32); CHLORIDE 97 MMOL/L (98-107); POTASSIUM 4.1 MMOL/L (3.5-5.1); SODIUM 135 MMOL/L (136-145)
[2018-01-22 09:27] LABS: ALANINE AMINOTRANSFERASE 63 U/L (12-78); ALBUMIN 3.5 G/DL (3.4-5.0); ALBUMIN/GLOBULIN RATIO 0.8 (1.0-2.7); ALKALINE PHOSPHATASE 76 U/L (46-116); ASPARTATE AMINO TRANSFERASE 57 U/L (15-37); BILIRUBIN,TOTAL 0.8 MG/DL (0.2-1.0)
[2018-01-22] MEDS ORDERED: PEPCID AC20 M2 PO (10:10)
[2018-01-22 10:11] VITALS: BP 131/69
[2018-01-22 11:21] VITALS: BP 122/66
--- NOTE | 2018-01-22 16:51 | Cardiology Report ---
APPROVED REPORT EKG Measurement Heart [id number] Normal sinus rhythm Normal ECG
== END 2018-01-22 11:27 | disposition home or self-care (01) ==
LOC: EMR 08:26
DX: K92.2 Gastrointestinal hemorrhage, unspecified (principal); R10.13 Epigastric pain; R11.2 Nausea with vomiting, unspecified; I10 Essential (primary) hypertension; F10.21 Alcohol dependence, in remission
CPT/HCPCS: 36415; 80053; 80329; 81003; 83690; 85025; 85610; 85730; 86850; 86900; 86901; 93005; 96374; 96375; 99284; C9113; J2405; S0028

== ENCOUNTER 2018-10-04 08:29 | Emergency (ER) | payer MEDICAID ==
[~2018-10-04] VITALS: Ht 162.6 cm; Wt 74.8 kg
[~2018-10-04 08:29] MED LIST changes: +AMLODIPINE BES2.5 MG ORAL; +PEPCID AC20 M2 PO
[2018-10-04] MEDS ORDERED: DiphenhydrAMINE 50mg/ml Inj IVP ONE (09:00)
[2018-10-04] MEDS ORDERED: Metoclopramide 10mg/2ml Inj IVP ONE (09:00)
[2018-10-04 09:23] LABS: BASOPHILS % (AUTO) 0.6 % (0.0-2.0); EOSINOPHILS % (AUTO) 0.2 % (0.0-3.0); HEMATOCRIT 46.1 % (42.0-52.0); HEMOGLOBIN 15.7 G/DL (14.2-18.0); LYMPHOCYTES % (AUTO) 24.3 % (20.0-45.0); MEAN CORPUSCULAR VOLUME 89 FL (80-99); MONOCYTES % (AUTO) 4.7 % (1.0-10.0); NEUTROPHILS % (AUTO) 70.2 % (45.0-75.0); PLATELET COUNT 332 K/UL (150-450); RED BLOOD COUNT 5.17 M/UL (4.70-6.10); RED CELL DISTRIBUTION WIDTH 12.8 % (11.6-14.8); WHITE BLOOD COUNT 8.9 K/UL (4.8-10.8)
[2018-10-04 09:26] LABS: ANION GAP 11 mmol/L (5-15); BLOOD UREA NITROGEN 13 mg/dL (7-18); CALCIUM 8.2 MG/DL (8.5-10.1); CARBON DIOXIDE 26 MMOL/L (21-32); CHLORIDE 94 MMOL/L (98-107); CREATININE 0.8 MG/DL (0.55-1.30); POTASSIUM 3.5 MMOL/L (3.5-5.1); SODIUM 131 MMOL/L (136-145)
[2018-10-04 09:31] LABS: ALANINE AMINOTRANSFERASE 40 U/L (12-78); ALBUMIN 3.5 G/DL (3.4-5.0); ALBUMIN/GLOBULIN RATIO 0.8 (1.0-2.7); ALKALINE PHOSPHATASE 72 U/L (46-116); ASPARTATE AMINO TRANSFERASE 32 U/L (15-37); BILIRUBIN,TOTAL 0.9 MG/DL (0.2-1.0)
[2018-10-04 09:36] VITALS: BP 160/87
[2018-10-04] MEDS ORDERED: MAALOX MAXIMUM355 M1 PO (10:28)
[2018-10-04] MEDS ORDERED: PEPCID AC20 M2 PO (10:28)
[2018-10-04 11:00] VITALS: BP 158/86
[2018-10-04 11:01] VITALS: BP 158/86
--- NOTE | 2018-10-04 14:39 | Emergency Room Report ---
History of Present Illness General Chief Complaint: Vomiting Source: Patient, Medical Record Present Illness HPI Patient presents with reports that he has been drinking more alcohol than usual Patient reports that he was having some epigastric pain vomiting Denies any chest pain or shortness of breath Patient does not consider himself an alcoholic denies any chills denies any blood in the stool or vomitus denies any recent trauma Allergies: Coded Allergies: No Known Allergies (Unverified , 09/29/16) Patient History Past Medical History: see triage record Pertinent Family History: none Reviewed Nursing Documentation: PMH: Agreed; PSxH: Agreed Nursing Documentation-PMH Past Medical History: No History, Except For Hx Hypertension: Yes Hx Cancer: No Hx Gastrointestinal Problems: No Hx Neurological Problems: No Review of Systems All Other Systems: negative except mentioned in HPI Physical Exam Vital Signs Date Time Temp Pulse Resp B/P (MAP) Pulse Ox O2 Delivery O2 Flow Rate FiO2 10/04/18 08:36 98.2 103 18 166/91 96 Room Air Sp02 EP Interpretation: reviewed, normal General Appearance: well appearing, no apparent distress Head: normocephalic, atraumatic Eyes: bilateral eye PERRL, bilateral eye EOMI ENT: hearing grossly normal, normal pharynx, TMs + canals normal, uvula midline Neck: full range of motion, supple, no meningismus, no bony tend Respiratory: lungs clear, normal breath sounds, no rhonchi, no respiratory distress, no retraction, no accessory muscle use Cardiovascular #1: normal peripheral pulses, regular rate, rhythm, no edema, no gallop, no JVD, no murmur Gastrointestinal: normal bowel sounds, non tender, soft, no mass, no organomegaly, non-distended, no guarding, no hernia, no pulsatile mass, no rebound Genitourinary: no CVA tenderness Musculoskeletal: normal inspection Neurologic: oriented x3, responsive, grab driver III-XII nml as tested, motor strength/ tone normal, sensory intact Psychiatric: mood/affect normal Skin: normal color, no rash, warm/dry, palpation normal Lymphatic: normal inspection, no adenopathy Medical Decision Making Diagnostic Impression: Primary Impression: Vomiting Additional Impression: Abdominal pain ER Course With the history exam and presentation, multiple differentials considered, including but not limited to appendicitis, gastritis, cholecystitis, diverticulitis Patient's blood work is fairly benign patient feels significantly improved after acute intervention Discussion was made regarding alcohol abuse Patient will have close outpatient follow-up Labs Test 10/04/18 09:00 White Blood Count 8.9 K/UL (4.8-10.8) Red Blood Count 5.17 M/UL (4.70-6.10) Hemoglobin 15.7 G/DL (14.2-18.0) Hematocrit 46.1 % (42.0-52.0) Mean Corpuscular Volume 89 FL (80-99) Mean Corpuscular Hemoglobin 30.3 PG (27.0-31.0) Mean Corpuscular Hemoglobin Concent 33.9 G/DL (32.0-36.0) Red Cell Distribution Width 12.8 % (11.6-14.8) Platelet Count 332 K/UL (150-450) Mean Platelet Volume 5.7 FL (6.5-10.1) Neutrophils (%) (Auto) 70.2 % (45.0-75.0) Lymphocytes (%) (Auto) 24.3 % (20.0-45.0) Monocytes (%) (Auto) 4.7 % (1.0-10.0) Eosinophils (%) (Auto) 0.2 % (0.0-3.0) Basophils (%) (Auto) 0.6 % (0.0-2.0) Sodium Level 131 MMOL/L (136-145) Potassium Level 3.5 MMOL/L (3.5-5.1) Chloride Level 94 MMOL/L (98-107) Carbon Dioxide Level 26 MMOL/L (21-32) Anion Gap 11 mmol/L (5-15) Blood Urea Nitrogen 13 mg/dL (7-18) Creatinine 0.8 MG/DL (0.55-1.30) Estimat Glomerular Filtration Rate > 60 mL/min (>60) Glucose Level 107 MG/DL (74-106) Calcium Level 8.2 MG/DL (8.5-10.1) Total Bilirubin 0.9 MG/DL (0.2-1.0) Aspartate Amino Transf (AST/SGOT) 32 U/L (15-37) Alanine Aminotransferase (ALT/SGPT) 40 U/L (12-78) Alkaline Phosphatase 72 U/L (46-116) Total Protein 7.9 G/DL (6.4-8.2) Albumin 3.5 G/DL (3.4-5.0) Globulin 4.4 g/dL Albumin/Globulin Ratio 0.8 (1.0-2.7) Lipase 67 U/L (73-393) Last Vital Signs Date Time Temp Pulse Resp B/P (MAP) Pulse Ox O2 Delivery O2 Flow Rate FiO2 10/04/18 11:01 98.2 92 18 158/86 97 Room Air Status: improved Disposition: HOME, SELF-CARE Condition: Improved Scripts Mag Hydrox/Al Hydrox/Simeth (MAALOX MAXIMUM STRENGTH SUSP) 355 Ml Oral.susp 20 ML PO QHS for 5 Days, ML Prov: Manas Villa DO 10/04/18 Famotidine (PEPCID AC) 20 Mg Tablet 20 MG PO DAILY, #10 TAB Prov: Manas Villa DO 10/04/18 Referrals: NOT CHOSEN IPA/MD,REFERRING (PCP) Patient Instructions: Nausea and Vomiting, Adult, Abdominal Pain, Adult Additional Instructions: Patient is provided with the discharge instructions notified to follow up with primary doctor in the next 2-3 days otherwise return to the er with any worsening symptoms. Please note that this report is being documented using [employer] technology. This can lead to erroneous entry secondary to incorrect interpretation by the dictating instrument. Manas Villa DO Oct 04, 2018 14:39
== END 2018-10-04 11:03 | disposition home or self-care (01) ==
LOC: EMR 09:05
DX: R11.10 Vomiting, unspecified (principal); R10.13 Epigastric pain; I10 Essential (primary) hypertension
CPT/HCPCS: 36415; 80053; 83690; 85025; 96361; 96374; 96375; 99284; J1200; J2765; S0028

== ENCOUNTER 2019-04-28 17:56 | Inpatient (IN) | payer MEDICAID ==
[~2019-04-28] VITALS: Ht 152.4 cm; Wt 84.4 kg
[~2019-04-28 17:56] MED LIST changes: +MAALOX MAXIMUM355 M1 PO
[2019-04-28 18:24] VITALS: BP 141/104
[2019-04-28] MEDS ORDERED: LORazepam Inj 2mg/ml 1ml IV ONE ×3 (18:45→21:00)
[2019-04-28 18:53] LABS: ANION GAP 10 mmol/L (5-15); BLOOD UREA NITROGEN 5 mg/dL (7-18); CALCIUM 8.5 MG/DL (8.5-10.1); CARBON DIOXIDE 25 MMOL/L (21-32); CHLORIDE 99 MMOL/L (98-107); CREATININE 0.7 MG/DL (0.55-1.30); POTASSIUM 3.8 MMOL/L (3.5-5.1); SODIUM 134 MMOL/L (136-145)
[2019-04-28 18:55] LABS: BASOPHILS % (AUTO) 1.1 % (0.0-2.0); EOSINOPHILS % (AUTO) 0.9 % (0.0-3.0); HEMOGLOBIN 13.6 G/DL (14.2-18.0); LYMPHOCYTES % (AUTO) 39.3 % (20.0-45.0); MEAN CORPUSCULAR VOLUME 94 FL (80-99); MONOCYTES % (AUTO) 9.7 % (1.0-10.0); PLATELET COUNT 230 K/UL (150-450); RED BLOOD COUNT 4.38 M/UL (4.70-6.10); RED CELL DISTRIBUTION WIDTH 13.5 % (11.6-14.8); WHITE BLOOD COUNT 6.9 K/UL (4.8-10.8)
[2019-04-28 18:58] LABS: ALANINE AMINOTRANSFERASE 43 U/L (12-78); ALBUMIN 3.2 G/DL (3.4-5.0); ALBUMIN/GLOBULIN RATIO 0.7 (1.0-2.7); ALKALINE PHOSPHATASE 66 U/L (46-116); ASPARTATE AMINO TRANSFERASE 31 U/L (15-37); BILIRUBIN,TOTAL 0.4 MG/DL (0.2-1.0); CREATINE KINASE 105 U/L (26-308)
[2019-04-28 19:19] LABS: APPEARANCE,URINE CLEAR; BILIRUBIN, URINE NEGATIVE (NEGATIVE); COLOR,URINE PALE YELLOW; GLUCOSE, URINE (UA) NEGATIVE (NEGATIVE); KETONES,URINE NEGATIVE (NEGATIVE); LEUKOCYTE ESTERASE ,URINE NEGATIVE (NEGATIVE); NITRITE,URINE NEGATIVE (NEGATIVE); PH,URINE 5 (4.5-8.0); PROTEIN,URINE NEGATIVE (NEGATIVE); UROBILINOGEN,URINE NORMAL MG/DL (0.0-1.0)
[2019-04-28 19:51] VITALS: BP 139/119
[2019-04-28 21:22] LABS: INR 1.1 (0.9-1.1)
--- NOTE | 2019-04-28 21:25 | Emergency Room Report ---
History of Present Illness General Chief Complaint: Alcohol Intoxication Present Illness HPI 64-year-old male with history of hypertension currently taking amlodipine here due to alcohol withdrawal after drinking about 10 beers a day for 10 days in a row. Patient reports that he has been very stressed lately and started drinking excessively. Patient denies any excess drinking history in the past. Denies smoking and drug use. Denies suicidal homicidal ideations. Denies , shortness of breath, palpitation, abdominal pain, however has been complaining of multiple bouts of nonbloody emesis and diarrhea. Denies recent trauma. Denies urinary symptoms. Patient appears with tachycardia and in distress. However denies shortness of breath however reports a 3 out of 10 chest pain without any radiation to arm or jaw. Patient denies any cardiac history. Denies headache and dizziness and head trauma. (Lyssa oRdriguez) Allergies: Coded Allergies: No Known Allergies (Unverified , 09/29/16) Patient History Past Medical History: see triage record Past Surgical History: unable to obtain Pertinent Family History: unable to obtain Social History: Reports: alcohol use Immunizations: UTD Reviewed Nursing Documentation: PMH: Agreed; PSxH: Agreed (Lyssa Rodriguez) Nursing Documentation-PMH Hx Hypertension: Yes Hx Cancer: No Hx Gastrointestinal Problems: No Hx Neurological Problems: No (Lyssa Rodriguez) Review of Systems All Other Systems: negative except mentioned in HPI (Lyssa Rodriguez) Physical Exam Vital Signs Date Time Temp Pulse Resp B/P (MAP) Pulse Ox O2 Delivery O2 Flow Rate FiO2 04/28/19 18:14 98.8 160 16 139/96 (110) 94 Room Air Sp02 EP Interpretation: abnormal General Appearance: moderate distress Head: normocephalic, atraumatic Eyes: bilateral eye normal inspection, bilateral eye PERRL ENT: normal ENT inspection, hearing grossly normal Neck: normal inspection, full range of motion, supple Respiratory: normal inspection, chest non-tender, lungs clear, normal breath sounds, no rhonchi, no wheezing Cardiovascular #1: normal peripheral pulses, no gallop, no murmur, normal capillary refill, tachycardia Gastrointestinal: normal inspection, non tender, soft, no mass, no organomegaly Genitourinary: no CVA tenderness Musculoskeletal: normal inspection, back normal, digits/nails normal, gait/ station normal, normal range of motion, non-tender Neurologic: normal inspection, alert, oriented x3, responsive, cement truck loader III-XII nml as tested, normal gait Psychiatric: normal inspection, judgement/insight normal, memory normal Skin: no rash Lymphatic: normal inspection, no adenopathy (Lyssa Rodriguez) Medical Decision Making PA Attestation All diagnoses and treatment plans were reviewed and discussed with my supervising physician Dr. Elizondo (Lyssa Rodriguez) Medicare Attestation The history of Elliot Paige has been reviewed and management options for him have been examined and discussed by Umair Elizondo. I have personally examined and interviewed the patient. (Umair Elizondo MD) Diagnostic Impression: Primary Impression: Tachycardia Additional Impressions: Alcohol withdrawal CHF (congestive heart failure) ER Course 64-year-old male with history of hypertension currently taking amlodipine here due to alcohol withdrawal after drinking about 10 beers a day for 10 days in a row. Patient reports that he has been very stressed lately and started drinking excessively. Patient denies any excess drinking history in the past. Denies smoking and drug use. Denies suicidal homicidal ideations. Denies , shortness of breath, palpitation, abdominal pain, however has been complaining of multiple bouts of nonbloody emesis and diarrhea. Denies recent trauma. Denies urinary symptoms. Patient appears with tachycardia and in distress. However denies shortness of breath however reports a 3 out of 10 chest pain without any radiation to arm or jaw. Patient denies any cardiac history. Denies headache and dizziness and head trauma. Ddx considered but are not limited to: generalized anxiety disorder, panic attack, depression with psycotic featurs, bipolar disorder, drug overdose , alcohol withdrawal, HI, tachycardia Vital signs: are WNL, pt. is afebrile H&PE are most consistent with: Alcohol withdrawal, tachycardia ORDERS: CBC, CMP, admission orders, chest x-ray, electrocardiogram ED INTERVENTIONS: NS bolus and Ativan Patient was admited with diagnosis of alcohol withdrawal and tachycardia and CHF to Dr Cerna under supervision of : Mikhail Of the patient to Dr. Moore pt stable at time of admission (Lyssa Rodriguez) EKG Diagnostic Results Rate: tachycardiac ST Segments: other - tachy (Lyssa Rodriguez) Chest X-Ray Diagnostic Results Chest X-Ray Diagnostic Results : Chest X-Ray Ordered: Yes # of Views/Limited/Complete: 1 View Indication: Chest Pain EP Interpretation: Yes PA Xray: Interpretation reviewed, by supervising MD, and agrees with findings. Interpretation: no pneumothorax, other - enlarged heart Impression: No acute disease Electronically Signed by: Lyssa Lopez PA-C (Lyssa Rodriguez) Last Vital Signs Date Time Temp Pulse Resp B/P (MAP) Pulse Ox O2 Delivery O2 Flow Rate FiO2 04/28/19 19:51 98.2 145 24 139/119 98 Room Air (Lyssa Rodriguez) Disposition: ADMITTED INPATIENT Condition: Stable Referrals: NOT CHOSEN IPA/,REFERRING (PCP) Lyssa Rodriguez Apr 28, 2019 21:25 Umair Elizondo MD Apr 28, 2019 23:23
[2019-04-28 21:56] VITALS: BP 127/96
[2019-04-28] MEDS ORDERED: Labetalol 5mg/ml 20ml vial IV ONE ×2 (22:30→22:45)
[2019-04-28 22:42] VITALS: BP 111/94
[2019-04-29] VITALS: BP 118/82
[2019-04-29] MEDS ORDERED: Heparin 5000 units/ml inj IV SCH ×2 (01:30→11:30)
[2019-04-29] MEDS ORDERED: Thiamine HCl 100 MG in D5W 55 ML IVPB ONE (01:30)
[2019-04-29] MEDS ORDERED: Heparin 25,000u/D5W 500ml 500 ML IV SCH ×2 (01:30→21:00)
[2019-04-29] MEDS ORDERED: Thiamine HCl 100mg/ml 2 ml Inj IM SCH (02:00)
[2019-04-29 02:06] LABS: BASOPHILS % (AUTO) 1.5 % (0.0-2.0); EOSINOPHILS % (AUTO) 2.7 % (0.0-3.0); HEMATOCRIT 38.1 % (42.0-52.0); HEMOGLOBIN 12.7 G/DL (14.2-18.0); MEAN CORPUSCULAR VOLUME 94 FL (80-99); MONOCYTES % (AUTO) 8.8 % (1.0-10.0); PLATELET COUNT 208 K/UL (150-450); RED BLOOD COUNT 4.07 M/UL (4.70-6.10); RED CELL DISTRIBUTION WIDTH 14.4 % (11.6-14.8); WHITE BLOOD COUNT 6.6 K/UL (4.8-10.8)
[2019-04-29 04:00] VITALS: BP 125/85
[2019-04-29 07:11] LABS: BASOPHILS % (AUTO) 1.3 % (0.0-2.0); EOSINOPHILS % (AUTO) 2.1 % (0.0-3.0); HEMOGLOBIN 12.4 G/DL (14.2-18.0); LYMPHOCYTES % (AUTO) 30.4 % (20.0-45.0); MEAN CORPUSCULAR VOLUME 95 FL (80-99); MONOCYTES % (AUTO) 7.7 % (1.0-10.0); NEUTROPHILS % (AUTO) 58.5 % (45.0-75.0); PLATELET COUNT 206 K/UL (150-450); RED BLOOD COUNT 3.89 M/UL (4.70-6.10); RED CELL DISTRIBUTION WIDTH 14.6 % (11.6-14.8); WHITE BLOOD COUNT 7.9 K/UL (4.8-10.8)
[2019-04-29 07:13] LABS: ANION GAP 9 mmol/L (5-15); BLOOD UREA NITROGEN 3 mg/dL (7-18); CALCIUM 7.6 MG/DL (8.5-10.1); CARBON DIOXIDE 25 MMOL/L (21-32); CHLORIDE 107 MMOL/L (98-107); CREATININE 0.6 MG/DL (0.55-1.30); POTASSIUM 3.5 MMOL/L (3.5-5.1); SODIUM 141 MMOL/L (136-145)
[2019-04-29 08:00] VITALS: BP 140/85
--- NOTE | 2019-04-29 08:36 | History and Physical ---
History of Present Illness General Date patient seen: Apr 29, 2019 Time patient seen: 14:08 Reason for Hospitalization: Alcohol Intoxication Present Illness HPI Patient is a 64yo M who states he was unaware of any prior medical history prior to admission. He admits to having been drinking for several days straight. His girlfriend has left him for another man. He denies any suicidal ideation, known history of MT; admits to feeling palpitations, dizziness, headache, abd pain. Allergies: Coded Allergies: No Known Allergies (Unverified , 09/29/16) Medication History Discontinued Medications Amlodipine Besylate* (Amlodipine Besylate*), 2.5 MG ORAL DAILY, (Reported) Discontinued Reason: Pt stopped taking med Famotidine (Pepcid), 20 MG ORAL BID Discontinued Reason: Pt stopped taking med Famotidine (Pepcid), 40 MG PO DAILY Discontinued Reason: Pt stopped taking med Famotidine (Pepcid Ac), 20 MG PO QHS Discontinued Reason: Pt stopped taking med Famotidine (Pepcid Ac), 20 MG PO DAILY Discontinued Reason: Pt stopped taking med Mag Hydrox/Al Hydrox/Simeth (Maalox Maximum Strength Susp), 20 ML PO QHS Discontinued Reason: Pt stopped taking med [htn med], (Reported) Discontinued Reason: Pt stopped taking med Medications Narrative denies meds Patient History History Provided By: Patient Healthcare decision maker Resuscitation status Full Code Advanced Directive on File Past Medical/Surgical History Past Medical/Surgical History: (1) ETOH abuse Social History Social History: (1) ETOH withdrawal (2) Poor social situation Review of Systems All Other Systems: negative except mentioned in HPI Physical Exam General Appearance: WD/WN, no apparent distress, alert, overweight, alert oriented x3 Lines, tubes and drains: peripheral HEENT: normocephalic, atraumatic, EOMI Neck: non-tender, normal alignment, supple Respiratory/Chest: chest wall non-tender, lungs clear, normal breath sounds Cardiovascular/Chest: normal peripheral pulses, no JVD, tachycardia Abdomen: non tender, soft, no mass Extremities: normal range of motion, non-tender, normal inspection Skin Exam: normal pigmentation 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, oriented x 3, responsive, normal mood/ affect Musculoskeletal: normal muscle bulk, no effusion Last 24 Hour Vital Signs Date Time Temp Pulse Resp B/P (MAP) Pulse Ox O2 Delivery O2 Flow Rate FiO2 04/29/19 04:00 2.0 04/29/19 04:00 124 04/29/19 04:00 97.4 57 18 125/85 (98) 99 04/29/19 00:00 113 04/29/19 00:00 2.0 04/29/19 00:00 97.4 54 19 118/82 (94) 99 04/28/19 23:33 Nasal Cannula 2.0 04/28/19 23:19 97.8 133 26 123/88 99 Nasal Cannula 2.0 04/28/19 22:51 154 123/88 04/28/19 22:42 97.8 133 26 111/94 99 Nasal Cannula 2.0 04/28/19 22:23 150 111/94 04/28/19 21:56 98.3 155 24 127/96 97 Nasal Cannula 2.0 04/28/19 19:51 98.2 145 24 139/119 98 Room Air 04/28/19 18:24 98.8 159 34 141/104 98 Room Air 04/28/19 18:22 160 16 Room Air 04/28/19 18:14 98.8 160 16 139/96 (110) 94 Room Air Intake and Output 04/28/19 04/29/19 19:00 07:00 Intake Total 100 ml Output Total 1100 ml Balance -1000 ml Intake Oral 100 ml Output Urine Total 1100 ml # Voids 1 # Bowel Movements 2 Laboratory Tests Test 04/28/19 18:21 04/28/19 19:00 04/29/19 01:45 04/29/19 06:05 White Blood Count 6.9 K/UL (4.8-10.8) 6.6 K/UL (4.8-10.8) 7.9 K/UL (4.8-10.8) Red Blood Count 4.38 M/UL (4.70-6.10) L 4.07 M/UL (4.70-6.10) L 3.89 M/UL (4.70-6.10) L Hemoglobin 13.6 G/DL (14.2-18.0) L 12.7 G/DL (14.2-18.0) L 12.4 G/DL (14.2-18.0) L Hematocrit 41.0 % (42.0-52.0) L 38.1 % (42.0-52.0) L 37.0 % (42.0-52.0) L Mean Corpuscular Volume 94 FL (80-99) 94 FL (80-99) 95 FL (80-99) Mean Corpuscular Hemoglobin 31.0 PG (27.0-31.0) 31.2 PG (27.0-31.0) H 31.8 PG (27.0-31.0) H Mean Corpuscular Hemoglobin Concent 33.1 G/DL (32.0-36.0) 33.3 G/DL (32.0-36.0) 33.4 G/DL (32.0-36.0) Red Cell Distribution Width 13.5 % (11.6-14.8) 14.4 % (11.6-14.8) 14.6 % (11.6-14.8) Platelet Count 230 K/UL (150-450) 208 K/UL (150-450) 206 K/UL (150-450) Mean Platelet Volume 5.4 FL (6.5-10.1) L 5.5 FL (6.5-10.1) L 5.7 FL (6.5-10.1) L Neutrophils (%) (Auto) 49.0 % (45.0-75.0) 55.0 % (45.0-75.0) 58.5 % (45.0-75.0) Lymphocytes (%) (Auto) 39.3 % (20.0-45.0) 32.0 % (20.0-45.0) 30.4 % (20.0-45.0) Monocytes (%) (Auto) 9.7 % (1.0-10.0) 8.8 % (1.0-10.0) 7.7 % (1.0-10.0) Eosinophils (%) (Auto) 0.9 % (0.0-3.0) 2.7 % (0.0-3.0) 2.1 % (0.0-3.0) Basophils (%) (Auto) 1.1 % (0.0-2.0) 1.5 % (0.0-2.0) 1.3 % (0.0-2.0) Prothrombin Time 11.4 SEC (9.30-11.50) Prothromb Time International Ratio 1.1 (0.9-1.1) Activated Partial Thromboplast Time 30 SEC (23-33) 29 SEC (23-33) Sodium Level 134 MMOL/L (136-145) L 141 MMOL/L (136-145) Potassium Level 3.8 MMOL/L (3.5-5.1) 3.5 MMOL/L (3.5-5.1) Chloride Level 99 MMOL/L (98-107) 107 MMOL/L (98-107) Carbon Dioxide Level 25 MMOL/L (21-32) 25 MMOL/L (21-32) Anion Gap 10 mmol/L (5-15) 9 mmol/L (5-15) Blood Urea Nitrogen 5 mg/dL (7-18) L 3 mg/dL (7-18) L Creatinine 0.7 MG/DL (0.55-1.30) 0.6 MG/DL (0.55-1.30) Estimat Glomerular Filtration Rate > 60 mL/min (>60) > 60 mL/min (>60) Glucose Level 100 MG/DL (74-106) 85 MG/DL (74-106) Calcium Level 8.5 MG/DL (8.5-10.1) 7.6 MG/DL (8.5-10.1) L Magnesium Level 1.6 MG/DL (1.8-2.4) L Total Bilirubin 0.4 MG/DL (0.2-1.0) Aspartate Amino Transf (AST/SGOT) 31 U/L (15-37) Alanine Aminotransferase (ALT/SGPT) 43 U/L (12-78) Alkaline Phosphatase 66 U/L (46-116) Total Creatine Kinase 105 U/L (26-308) Creatine Kinase MB 2.0 NG/ML (0.0-3.6) Troponin I 0.028 ng/mL (0.000-0.056) Pro-B-Type Natriuretic Peptide 2252 pg/mL (0-125) H Total Protein 7.5 G/DL (6.4-8.2) Albumin 3.2 G/DL (3.4-5.0) L Globulin 4.3 g/dL Albumin/Globulin Ratio 0.7 (1.0-2.7) L Serum Alcohol 178 mg/dL Urine Color Pale yellow Urine Appearance Clear Urine pH 5 (4.5-8.0) Urine Specific [place] 1.010 (1.005-1.035) Urine Protein Negative (NEGATIVE) Urine Glucose (UA) Negative (NEGATIVE) Urine Ketones Negative (NEGATIVE) Urine Blood Negative (NEGATIVE) Urine Nitrite Negative (NEGATIVE) Urine Bilirubin Negative (NEGATIVE) Urine Urobilinogen Normal MG/DL (0.0-1.0) Urine Leukocyte Esterase Negative (NEGATIVE) Urine RBC 0-2 /HPF (0 - 0) H Urine WBC 0-2 /HPF (0 - 0) Urine Squamous Epithelial Cells None /LPF (NONE/OCC) Urine Amorphous Sediment Few /LPF (NONE) H Urine Bacteria Few /HPF (NONE) Urine Opiates Screen Negative (NEGATIVE) Urine Barbiturates Screen Negative (NEGATIVE) Phencyclidine (PCP) Screen Negative (NEGATIVE) Urine Amphetamines Screen Negative (NEGATIVE) Urine Benzodiazepines Screen Negative (NEGATIVE) Urine Cocaine Screen Negative (NEGATIVE) Urine Marijuana (THC) Screen Negative (NEGATIVE) Height (Feet): 5 Height (Inches): 6.00 Weight (Pounds): 192 Medications Current Medications Medications (Trade) Dose Ordered Sig/Meg Route PRN Reason Start Time Stop Time Status Last Admin Dose Admin Diazepam (Valium) 10 mg Q6HR ORAL 04/29/19 06:00 05/06/19 05:59 04/29/19 06:09 Folic Acid (Folate) 1 mg DAILY ORAL 04/29/19 09:00 05/29/19 08:59 Furosemide (Lasix) 40 mg DAILY IV 04/29/19 09:00 05/29/19 08:59 Heparin Sodium/ Dextrose 500 ml @ 31.352 mls/ hr ADJUST PER PROTOCOL IV 04/29/19 01:30 05/29/19 01:29 04/29/19 02:25 Magnesium Sulfate 100 ml @ 100 mls/hr Q1H IVPB 04/29/19 08:30 04/29/19 12:29 UNV Metoprolol Tartrate (Lopressor) 25 mg Q12HR ORAL 04/29/19 09:00 05/29/19 08:59 Thiamine HCl (Vitamin B1) 100 mg DAILY ORAL 04/29/19 09:00 05/29/19 08:59 Objective Narrative all imaging and labs reviewed Assessment/Plan Diagnosis Boswell I: 64 yo M with medical history of Etoh abuse is admitted for Etoh withdrawal # Etoh withdrawal - IVF given in ed, will hold off on more given CHF - benzo's for agitation - seizure precautions - monitor vitals - Psyche consult # afib rvr - Cardiology consult - cont hep gtt, transition to NOAC - HR control per cards, on mtl and cardizem # CHF w systolic and diastolic dysfunction - cards consult as above - tte shows ef 20-30% - needs outpatient cath - cardiac meds: bb, asa (ok to hold on hep), statin, acei, nitro prn - check lipid panel # Hypervolemic Hypernatremia- resolved - s/p IVF in ED # Full code - discussed code status with patient - dispo per scott and Maye Moy DO Apr 29, 2019 08:36
[2019-04-29] MEDS ORDERED: Metoprolol 25mg tab ORAL SCH ×2 (09:00→21:00)
[2019-04-29] MEDS: Thiamine 100mg tab ORAL SCH (09:11)
--- NOTE | 2019-04-29 10:38 | Diagnostic Imaging Report ---
Indication: Chest pain Comparison: 09/29/2016 A single view chest radiograph was obtained. Findings: The heart is enlarged. The lungs are clear. Pulmonary vascularity is appropriate. The diaphragmatic contour is smooth and costophrenic angles are sharp. No pleural effusions are identified. The bones are unremarkable. Impression: No acute findings
--- NOTE | 2019-04-29 10:42 | Diagnostic Imaging Report ---
Indication: Dyspnea Comparison: 04/28/2019 A single view chest radiograph was obtained. Findings: No definite infiltrate or pulmonary vascular congestion identified. The heart is enlarged. The aorta is mildly enlarged consistent with atherosclerotic vascular disease. The bones are osteopenic. Impression: No acute disease
[2019-04-29] MEDS ORDERED: Metoprolol 25mg tab ORAL ONE (11:00)
--- NOTE | 2019-04-29 11:46 | Consultation ---
History of Present Illness General Date patient seen: Apr 29, 2019 Time patient seen: 11:39 Chief Complaint: Alcohol Intoxication Present Illness HPI Pt walked in from home due to medial abdominal pain with n/v/d x 5 days.Pt admitted he has been drinking alcohol x 10 days straight. 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 CXR clear. BNp elevated, troponin negative. Allergies: Coded Allergies: No Known Allergies (Unverified , 09/29/16) Medication History Scheduled Amlodipine Besylate* (Amlodipine Besylate*), 2.5 MG ORAL DAILY, (Reported) Famotidine (Pepcid), 20 MG ORAL BID Famotidine (Pepcid), 40 MG PO DAILY Famotidine (Pepcid Ac), 20 MG PO QHS Famotidine (Pepcid Ac), 20 MG PO DAILY Mag Hydrox/Al Hydrox/Simeth (Maalox Maximum Strength Susp), 20 ML PO QHS Miscellaneous Medications [htn med], (Reported) Patient History Healthcare decision maker Resuscitation status Full Code Advanced Directive on File Review of Systems Constitutional: Reports: no symptoms Eye: Reports: no symptoms ENT: Reports: no symptoms Respiratory: Reports: no symptoms Cardiovascular: Reports: palpitations Gastrointestinal: Reports: diarrhea, nausea, vomiting Genitourinary: Reports: no symptoms Musculoskeletal: Reports: no symptoms Skin: Reports: no symptoms Psychiatric: Reports: no symptoms Neurological: Reports: no symptoms Endocrine: Reports: no symptoms Hematologic/Lymphatic: Reports: no symptoms Physical Exam General Appearance: no apparent distress Lines, tubes and drains: peripheral HEENT: normocephalic, atraumatic, anicteric, mucous membranes moist, PERRL Neck: non-tender, normal alignment, supple, normal inspection Respiratory/Chest: chest wall non-tender, lungs clear Cardiovascular/Chest: regularly irregular, tachycardia, gallop/S4 Abdomen: normal bowel sounds, non tender Extremities: normal range of motion, non-tender, normal inspection, no calf tenderness, normal capillary refill, non-pitting Skin Exam: normal pigmentation, warm/dry 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, no motor/sensory deficits Last 24 Hour Vital Signs Date Time Temp Pulse Resp B/P (MAP) Pulse Ox O2 Delivery O2 Flow Rate FiO2 04/29/19 09:12 111 140/85 04/29/19 08:00 97.9 160 20 140/85 (103) 97 04/29/19 08:00 2.0 04/29/19 08:00 160 04/29/19 04:00 2.0 04/29/19 04:00 124 04/29/19 04:00 97.4 57 18 125/85 (98) 99 04/29/19 00:00 113 04/29/19 00:00 2.0 04/29/19 00:00 97.4 54 19 118/82 (94) 99 04/28/19 23:33 Nasal Cannula 2.0 04/28/19 23:19 97.8 133 26 123/88 99 Nasal Cannula 2.0 04/28/19 22:51 154 123/88 04/28/19 22:42 97.8 133 26 111/94 99 Nasal Cannula 2.0 04/28/19 22:23 150 111/94 04/28/19 21:56 98.3 155 24 127/96 97 Nasal Cannula 2.0 04/28/19 19:51 98.2 145 24 139/119 98 Room Air 04/28/19 18:24 98.8 159 34 141/104 98 Room Air 04/28/19 18:22 160 16 Room Air 04/28/19 18:14 98.8 160 16 139/96 (110) 94 Room Air Intake and Output 04/28/19 04/29/19 18:59 06:59 Intake Total 100 ml Output Total 1100 ml Balance -1000 ml Intake Oral 100 ml Output Urine Total 1100 ml # Voids 1 # Bowel Movements 2 Laboratory Tests Test 04/28/19 18:21 04/28/19 19:00 04/29/19 01:45 04/29/19 06:05 White Blood Count 6.9 K/UL (4.8-10.8) 6.6 K/UL (4.8-10.8) 7.9 K/UL (4.8-10.8) Red Blood Count 4.38 M/UL (4.70-6.10) L 4.07 M/UL (4.70-6.10) L 3.89 M/UL (4.70-6.10) L Hemoglobin 13.6 G/DL (14.2-18.0) L 12.7 G/DL (14.2-18.0) L 12.4 G/DL (14.2-18.0) L Hematocrit 41.0 % (42.0-52.0) L 38.1 % (42.0-52.0) L 37.0 % (42.0-52.0) L Mean Corpuscular Volume 94 FL (80-99) 94 FL (80-99) 95 FL (80-99) Mean Corpuscular Hemoglobin 31.0 PG (27.0-31.0) 31.2 PG (27.0-31.0) H 31.8 PG (27.0-31.0) H Mean Corpuscular Hemoglobin Concent 33.1 G/DL (32.0-36.0) 33.3 G/DL (32.0-36.0) 33.4 G/DL (32.0-36.0) Red Cell Distribution Width 13.5 % (11.6-14.8) 14.4 % (11.6-14.8) 14.6 % (11.6-14.8) Platelet Count 230 K/UL (150-450) 208 K/UL (150-450) 206 K/UL (150-450) Mean Platelet Volume 5.4 FL (6.5-10.1) L 5.5 FL (6.5-10.1) L 5.7 FL (6.5-10.1) L Neutrophils (%) (Auto) 49.0 % (45.0-75.0) 55.0 % (45.0-75.0) 58.5 % (45.0-75.0) Lymphocytes (%) (Auto) 39.3 % (20.0-45.0) 32.0 % (20.0-45.0) 30.4 % (20.0-45.0) Monocytes (%) (Auto) 9.7 % (1.0-10.0) 8.8 % (1.0-10.0) 7.7 % (1.0-10.0) Eosinophils (%) (Auto) 0.9 % (0.0-3.0) 2.7 % (0.0-3.0) 2.1 % (0.0-3.0) Basophils (%) (Auto) 1.1 % (0.0-2.0) 1.5 % (0.0-2.0) 1.3 % (0.0-2.0) Prothrombin Time 11.4 SEC (9.30-11.50) Prothromb Time International Ratio 1.1 (0.9-1.1) Activated Partial Thromboplast Time 30 SEC (23-33) 29 SEC (23-33) Sodium Level 134 MMOL/L (136-145) L 141 MMOL/L (136-145) Potassium Level 3.8 MMOL/L (3.5-5.1) 3.5 MMOL/L (3.5-5.1) Chloride Level 99 MMOL/L (98-107) 107 MMOL/L (98-107) Carbon Dioxide Level 25 MMOL/L (21-32) 25 MMOL/L (21-32) Anion Gap 10 mmol/L (5-15) 9 mmol/L (5-15) Blood Urea Nitrogen 5 mg/dL (7-18) L 3 mg/dL (7-18) L Creatinine 0.7 MG/DL (0.55-1.30) 0.6 MG/DL (0.55-1.30) Estimat Glomerular Filtration Rate > 60 mL/min (>60) > 60 mL/min (>60) Glucose Level 100 MG/DL (74-106) 85 MG/DL (74-106) Calcium Level 8.5 MG/DL (8.5-10.1) 7.6 MG/DL (8.5-10.1) L Magnesium Level 1.6 MG/DL (1.8-2.4) L Total Bilirubin 0.4 MG/DL (0.2-1.0) Aspartate Amino Transf (AST/SGOT) 31 U/L (15-37) Alanine Aminotransferase (ALT/SGPT) 43 U/L (12-78) Alkaline Phosphatase 66 U/L (46-116) Total Creatine Kinase 105 U/L (26-308) Creatine Kinase MB 2.0 NG/ML (0.0-3.6) Troponin I 0.028 ng/mL (0.000-0.056) Pro-B-Type Natriuretic Peptide 2252 pg/mL (0-125) H Total Protein 7.5 G/DL (6.4-8.2) Albumin 3.2 G/DL (3.4-5.0) L Globulin 4.3 g/dL Albumin/Globulin Ratio 0.7 (1.0-2.7) L Serum Alcohol 178 mg/dL Urine Color Pale yellow Urine Appearance Clear Urine pH 5 (4.5-8.0) Urine Specific [place] 1.010 (1.005-1.035) Urine Protein Negative (NEGATIVE) Urine Glucose (UA) Negative (NEGATIVE) Urine Ketones Negative (NEGATIVE) Urine Blood Negative (NEGATIVE) Urine Nitrite Negative (NEGATIVE) Urine Bilirubin Negative (NEGATIVE) Urine Urobilinogen Normal MG/DL (0.0-1.0) Urine Leukocyte Esterase Negative (NEGATIVE) Urine RBC 0-2 /HPF (0 - 0) H Urine WBC 0-2 /HPF (0 - 0) Urine Squamous Epithelial Cells None /LPF (NONE/OCC) Urine Amorphous Sediment Few /LPF (NONE) H Urine Bacteria Few /HPF (NONE) Urine Opiates Screen Negative (NEGATIVE) Urine Barbiturates Screen Negative (NEGATIVE) Phencyclidine (PCP) Screen Negative (NEGATIVE) Urine Amphetamines Screen Negative (NEGATIVE) Urine Benzodiazepines Screen Negative (NEGATIVE) Urine Cocaine Screen Negative (NEGATIVE) Urine Marijuana (THC) Screen Negative (NEGATIVE) Test 04/29/19 08:30 Activated Partial Thromboplast Time 38 SEC (23-33) H Height (Feet): 5 Height (Inches): 6.00 Weight (Pounds): 192 Medications Current Medications Medications (Trade) Dose Ordered Sig/Meg Route PRN Reason Start Time Stop Time Status Last Admin Dose Admin Diazepam (Valium) 10 mg Q6HR ORAL 04/29/19 06:00 05/06/19 05:59 04/29/19 06:09 Diltiazem HCl (Cardizem) 30 mg EVERY 6 HOURS PRN ORAL hr >120 04/29/19 10:45 05/29/19 10:44 Folic Acid (Folate) 1 mg DAILY ORAL 04/29/19 09:00 05/29/19 08:59 04/29/19 09:11 Furosemide (Lasix) 40 mg DAILY IV 04/29/19 09:00 05/29/19 08:59 04/29/19 09:13 Heparin Sodium (Porcine) (Heparin 5000 units/ml) 7,000 units ONCE IV 04/29/19 11:30 04/29/19 12:00 Heparin Sodium/ Dextrose 500 ml @ 38.32 mls/ hr ADJUST PER PROTOCOL IV 04/29/19 11:30 05/29/19 11:29 Magnesium Sulfate 100 ml @ 100 mls/hr Q1H IVPB 04/29/19 09:00 04/29/19 12:59 04/29/19 09:13 Metoprolol Tartrate (Lopressor) 50 mg Q12HR ORAL 04/29/19 21:00 05/29/19 20:59 Thiamine HCl (Vitamin B1) 100 mg DAILY ORAL 04/29/19 09:00 05/29/19 08:59 04/29/19 09:11 Assessment/Plan Status: stable Assessment/Plan: Assessment: Alcohol intoxication Moderate mitral mitral regurgitation Severe systolic dysfunction Alcohol cardiomyopathy Atrial fibrillation RVR PLAN; AFIB: -rate control metropolol 75 mg BID -Anticoagulation heparin gtt -> transition to DOAC -Defer cardioversion given systolic dysfunction -Defer SERGO given unknown status of coronaries and LA clot Systolic dysfunction -Will need cardiac cath as outpatient to evaluate coronaries -Arrange life vest -Start lisinopril 5. mg afterload reduction -Add aldactone 12.5 mg -Mild diuresis as tolerated Mitral regurgitation -fuctional, rate control to lower regurgitant volume Stephen Daigle MD Apr 29, 2019 11:46
[2019-04-29] MEDS: Heparin 25,000u/D5W 500ml 500 ML IV SCH ×2 (11:49→18:25)
[2019-04-29 12:00] VITALS: BP 133/79
[2019-04-29 16:00] VITALS: BP 138/92
--- NOTE | 2019-04-29 19:05 | Cardiology Report ---
APPROVED REPORT EXAM: Two-dimensional and M-mode echocardiogram with Doppler and color Doppler. INDICATION Tachycardia M-Mode DIMENSIONS IVSd0.9 (0.7-1.1cm)Left Atrium (MM)4.7 (1.6-4.0cm) LVDd4.7 (3.5-5.6cm)Aortic Root3.1 (2.0-3.7cm) PWd0.9 (0.7-1.1cm)Aortic Cusp Exc.1.6 (1.5-2.0cm) LVDs4.1 (2.5-4.0cm) PWs1.0 cm Normal left ventricular chamber size. Moderate to severe global left ventricular hypokinesis. Left ventricular ejection fraction estimated to be 20-25 %. Study quality precludes accurate assessment of regional wall motion and valvular definitaion No evidence of left ventricular hypertrophy. Anterior Echo-free space, may be due to pericardial fat or effusion. Moderate left atrial enlargement. Right cardiac chamber sizes are within normal limits. Focal aortic valve sclerosis with adequate cusp excursion. Thickened mitral valve leaflets with normal excursion. Mitral annulus and aortic root calcification. Pulmonic valve not visualized. Normal tricuspid valve structure. IVC dilated at 2.2 cm with slight physiologic collapse. A color flow and spectral Doppler study was performed and revealed: Trace aortic regurgitation. Can not determine left ventricular diastolic function by mitral diastolic velocities due to atrial flutter. Mild mitral regurgitation. Trace tricuspid regurgitation. Tricuspid systolic velocities suggests peak right ventricular systolic pressure of 17 mmHg.
[2019-04-29] MEDS: dilTIAZem HCl 30mg tab ORAL PRN (19:57)
[2019-04-29 20:00] VITALS: BP 128/92
[2019-04-29] MEDS ORDERED: Acetaminophen 500mg (ES) tab ORAL PRN (20:30)
[2019-04-29] MEDS: Metoprolol 25mg tab ORAL SCH (20:40)
[2019-04-29] MEDS: Atorvastatin 20mg tab ORAL SCH (20:40)
[2019-04-29] MEDS ORDERED: LORazepam 1mg tab ORAL PRN (20:50)
[2019-04-29] MEDS: chlordiazePOXIDE 25mg Cap ORAL SCH (21:16)
--- NOTE | 2019-04-29 22:30 | Consultation ---
DATE OF CONSULTATION: 04/29/2019 CONSULTING PHYSICIAN: Jael Olvera M.D. HISTORY OF PRESENT ILLNESS: This is a 64-year-old male with a history of alcohol dependence admitted to the hospital for alcohol withdrawal. He presents with anxiety, agitation. The patient does not endorse any suicidal or homicidal ideations. The patient is very tachycardiac. The patient is severely anxious. PAST PSYCHIATRIC HISTORY: Anxiety. PAST MEDICAL HISTORY: Nonsignificant. ALLERGIES: No known drug allergies. SUBSTANCE ABUSE HISTORY: No known history of illicit drug use or alcohol. MENTAL STATUS EXAMINATION: The patient is alert, oriented times self, place, and situation. Mood is anxious. Affect is constricted, congruent with mood. Thought process is concrete. Thought content, no suicidal or homicidal ideation. ASSESSMENT: Braddock I Alcohol dependence, alcohol withdrawal. Braddock II Deferred. Braddock III As above. Braddock IV Low. Braddock V 20. PLAN: 1. We will discontinue the Valium. 2. Start the Librium 50 t.i.d. 3. Ativan p.r.n. 4. We will continue to follow and readjust the medications. Jael Olvera M.D. DR: CAREN JOB#: [id number] CC:
[2019-04-30] VITALS: BP 95/56
[2019-04-30 03:21] LABS: BASOPHILS % (AUTO) 0.8 % (0.0-2.0); EOSINOPHILS % (AUTO) 3.6 % (0.0-3.0); HEMATOCRIT 38.2 % (42.0-52.0); HEMOGLOBIN 12.7 G/DL (14.2-18.0); LYMPHOCYTES % (AUTO) 32.1 % (20.0-45.0); MEAN CORPUSCULAR VOLUME 95 FL (80-99); MONOCYTES % (AUTO) 9.1 % (1.0-10.0); NEUTROPHILS % (AUTO) 54.4 % (45.0-75.0); PLATELET COUNT 206 K/UL (150-450); RED BLOOD COUNT 4.01 M/UL (4.70-6.10); RED CELL DISTRIBUTION WIDTH 14.1 % (11.6-14.8); WHITE BLOOD COUNT 8.2 K/UL (4.8-10.8)
[2019-04-30 03:33] LABS: ANION GAP 4 mmol/L (5-15); BLOOD UREA NITROGEN 11 mg/dL (7-18); CALCIUM 8.5 MG/DL (8.5-10.1); CARBON DIOXIDE 31 MMOL/L (21-32); CHLORIDE 103 MMOL/L (98-107); CREATININE 0.9 MG/DL (0.55-1.30); SODIUM 138 MMOL/L (136-145)
[2019-04-30 03:40] LABS: CHOLESTEROL 137 MG/DL (< 200); HDL CHOLESTEROL 53 MG/DL (40-60); TRIGLYCERIDES 67 MG/DL (30-150)
[2019-04-30] MEDS ORDERED: Heparin 25,000u/D5W 500ml 500 ML IV SCH ×2 (04:30→11:00)
[2019-04-30 08:00] VITALS: BP 125/95
[2019-04-30] MEDS: Thiamine 100mg tab ORAL SCH (08:56)
[2019-04-30] MEDS: chlordiazePOXIDE 25mg Cap ORAL SCH ×3 (08:56→17:03)
[2019-04-30] MEDS: Spironolactone 25mg tab ORAL SCH (08:56)
[2019-04-30] MEDS: Metoprolol 25mg tab ORAL SCH ×2 (08:57→20:51)
[2019-04-30] MEDS: Lisinopril 2.5mg tab ORAL SCH (08:58)
[2019-04-30] MEDS: dilTIAZem HCl 30mg tab ORAL PRN (09:35)
[2019-04-30] MEDS ORDERED: Heparin 5000 units/ml inj IV SCH (11:00)
[2019-04-30 12:00] VITALS: BP 121/94
--- NOTE | 2019-04-30 13:07 | General Progress Note ---
Assessment/Plan Status: stable Assessment/Plan: 64 yo M with medical history of Etoh abuse is admitted for Etoh withdrawal # Etoh withdrawal - IVF given in ed, will hold off on more given CHF - seizure precautions - monitor vitals - Psyche consult - psyche reqs for librium noted # afib rvr - Cardiology consult - cont hep gtt, transition to NOAC - HR control per cards - change mtl from 75 to 100 bid, continue cardizem 30 prn # CHF w systolic and diastolic dysfunction - cards consult as above - tte shows ef 20-30% - needs outpatient cath - cardiac meds: bb, asa (ok to hold on hep), statin, acei, nitro prn - check lipid panel - cont lasix 40iv , likely change to po tomorrow # Hypervolemic Hypernatremia- resolved - s/p IVF in ED # Full code - discussed code status with patient - dispo per sw and cm Subjective Date patient seen: Apr 30, 2019 Time patient seen: 12:30 Allergies: Coded Allergies: No Known Allergies (Unverified , 09/29/16) Subjective continues to admit to palpitations, no tremors, feels well, tachy 150's Objective Last 24 Hour Vital Signs Date Time Temp Pulse Resp B/P (MAP) Pulse Ox O2 Delivery O2 Flow Rate FiO2 04/30/19 09:35 159 125/95 04/30/19 09:00 Nasal Cannula 2.0 04/30/19 08:58 125/95 04/30/19 08:57 157 125/95 04/30/19 08:00 2.0 04/30/19 08:00 157 04/30/19 08:00 98.6 157 18 125/95 (105) 95 04/30/19 04:00 87 04/30/19 04:00 2.0 04/30/19 04:00 04/30/19 00:00 82 04/30/19 00:00 2.0 04/30/19 00:00 97.9 104 19 95/56 (69) 95 04/29/19 21:00 Nasal Cannula 2.0 04/29/19 20:40 163 128/92 04/29/19 20:00 2.0 04/29/19 20:00 163 04/29/19 20:00 99.2 137 20 128/92 (104) 95 04/29/19 19:57 163 128/92 04/29/19 16:00 2.0 04/29/19 16:00 98.2 134 20 138/92 (107) 97 04/29/19 16:00 134 Intake and Output 04/29/19 04/30/19 19:00 07:00 Intake Total 730 ml 64.011 ml Output Total 1350 ml 650 ml Balance -620 ml -585.989 ml Intake Oral 730 ml IV Total 64.011 ml Output Urine Total 1350 ml 650 ml # Voids 3 # Bowel Movements 1 Laboratory Tests 04/29/19 17:51: Activated Partial Thromboplast Time > 150*H 04/30/19 02:58: Activated Partial Thromboplast Time 118H, White Blood Count 8.2, Red Blood Count 4.01L, Hemoglobin 12.7L, Hematocrit 38.2L, Mean Corpuscular Volume 95, Mean Corpuscular Hemoglobin 31.6H, Mean Corpuscular Hemoglobin Concent 33.2, Red Cell Distribution Width 14.1, Platelet Count 206, Mean Platelet Volume 5.5L , Neutrophils (%) (Auto) 54.4, Lymphocytes (%) (Auto) 32.1, Monocytes (%) (Auto ) 9.1, Eosinophils (%) (Auto) 3.6H, Basophils (%) (Auto) 0.8, Sodium Level 138, Potassium Level 4.0, Chloride Level 103, Carbon Dioxide Level 31, Anion Gap 4L, Blood Urea Nitrogen 11, Creatinine 0.9, Estimat Glomerular Filtration Rate > 60 , Glucose Level 117H, Calcium Level 8.5, Triglycerides Level 67, Cholesterol Level 137, LDL Cholesterol 71, HDL Cholesterol 53, Cholesterol/HDL Ratio 2.6L 04/30/19 10:20: Activated Partial Thromboplast Time 59H Height (Feet): 5 Height (Inches): 6.00 Weight (Pounds): 182 General Appearance: WD/WN, no apparent distress, alert EENT: PERRL/EOMI Neck: non-tender, normal alignment, supple Cardiovascular: no JVD, tachycardia Respiratory/Chest: chest wall non-tender, crackles/rales Abdomen: normal bowel sounds, non tender, soft Extremities: normal range of motion, non-tender Edema: no edema noted Arm (L), no edema noted Arm (R), no edema noted Leg (L), no edema noted Leg (R), no edema noted Pedal (L), no edema noted Pedal (R), no edema noted Generalized Neurologic: 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
[2019-04-30] MEDS: Eliquis 5mg tablet ORAL SCH ×2 (13:25→17:04)
[2019-04-30 16:00] VITALS: BP 104/65
--- NOTE | 2019-04-30 18:26 | Cardiology Report ---
APPROVED REPORT EKG Measurement Heart [id number] Atrial flutter with variable AV block with premature ventricular or aberrantly conducted complexes Nonspecific T wave abnormality Prolonged QT Abnormal ECG
--- NOTE | 2019-04-30 18:45 | Progress Note ---
DATE: 04/30/2019 SUBJECTIVE: The patient has been better today. More alert. He is less tachycardic. MENTAL STATUS EXAMINATION: Alert and oriented times self, place, and situation. Mood is neutral. Affect is constricted. Congruent with mood. Thought process is concrete. Thought content, no suicidal or homicidal ideation. ASSESSMENT: Alcohol withdrawal and alcohol dependence. PLAN: 1. The patient will be continued on Librium. 2. Continue Ativan p.r.n. 3. Provide the patient with reality orientation and supportive therapy. Jael Olvera M.D. DR: ALEM JOB#: [id number] CC:
[2019-04-30 20:00] VITALS: BP 105/75
[2019-04-30] MEDS: Atorvastatin 20mg tab ORAL SCH (20:51)
[2019-05-01] VITALS: BP 124/81
[2019-05-01 04:00] VITALS: BP 111/60
--- NOTE | 2019-05-01 07:05 | General Progress Note ---
Assessment/Plan Status: stable Assessment/Plan: 64 yo M with medical history of Etoh abuse is admitted for Etoh withdrawal # Etoh withdrawal - IVF given in ed, will hold off on more given CHF - seizure precautions - monitor vitals - Psyche consult - psyche reqs for librium noted -> wean off # afib rvr - Cardiology consult - cont hep gtt, transition to NOAC - HR control per cards - change mtl from 75 to 100 bid, continue cardizem 30 prn (order not followed through, correct today) # CHF w systolic and diastolic dysfunction - cards consult as above - tte shows ef 20-30% - needs outpatient cath - cardiac meds: bb, asa (ok to hold on hep), statin, acei, nitro prn - check lipid panel - changes lasix 40 mg IV BID to 40 mg po daily # Hypervolemic Hypernatremia- resolved - s/p IVF in ED # Dispo - PT for clearance # Full code - discussed code status with patient - dispo per sw and cm Subjective Date patient seen: May 01, 2019 Time patient seen: 12:00 ROS Limited/Unobtainable: No Allergies: Coded Allergies: No Known Allergies (Unverified , 09/29/16) Subjective mtl held for bp even though on ly in 100's, parameters placed for hold if sbp < 90 lasix changed to po complains of dizziness on standing Objective Last 24 Hour Vital Signs Date Time Temp Pulse Resp B/P (MAP) Pulse Ox O2 Delivery O2 Flow Rate FiO2 05/01/19 04:00 97.4 80 18 111/60 (77) 98 05/01/19 04:00 120 05/01/19 00:00 98.0 73 18 124/81 (95) 98 05/01/19 00:00 116 04/30/19 21:00 Nasal Cannula 2.0 04/30/19 20:51 115 105/75 04/30/19 20:00 98.0 115 18 105/75 (85) 95 04/30/19 20:00 123 04/30/19 16:00 102 04/30/19 16:00 2.0 04/30/19 16:00 98.1 102 18 104/65 (78) 99 04/30/19 12:00 2.0 04/30/19 12:00 98.4 104 18 121/94 (103) 97 04/30/19 12:00 104 04/30/19 09:35 159 125/95 04/30/19 09:00 Nasal Cannula 2.0 04/30/19 08:58 125/95 04/30/19 08:57 157 125/95 04/30/19 08:00 2.0 04/30/19 08:00 157 04/30/19 08:00 98.6 157 18 125/95 (105) 95 Intake and Output 04/30/19 05/01/19 19:00 07:00 Intake Total 600 ml Balance 600 ml Other 600 ml # Voids 2 Laboratory Tests 04/30/19 10:20: Activated Partial Thromboplast Time 59H Height (Feet): 5 Height (Inches): 6.00 Weight (Pounds): 191 Objective GEN: WDWN, NAD, Alert ad Oriented HEENT: PERRLA, EOMI, no icterus NECK: soft non tender CV: tachy, no m/r/g, no jvd RESP: No w/r/c, CTAB ABD: soft, bowel sounds present, non tender to palpation EXT: non tender, normal muscle bulk NEURO: grosslty normal, no tremors Maye Samano DO May 01, 2019 07:05
[2019-05-01 07:35] LABS: BASOPHILS % (AUTO) 0.7 % (0.0-2.0); HEMATOCRIT 38.9 % (42.0-52.0); HEMOGLOBIN 12.6 G/DL (14.2-18.0); LYMPHOCYTES % (AUTO) 30.4 % (20.0-45.0); MEAN CORPUSCULAR VOLUME 98 FL (80-99); MONOCYTES % (AUTO) 10.2 % (1.0-10.0); NEUTROPHILS % (AUTO) 53.6 % (45.0-75.0); PLATELET COUNT 224 K/UL (150-450); RED BLOOD COUNT 3.97 M/UL (4.70-6.10); RED CELL DISTRIBUTION WIDTH 14.8 % (11.6-14.8); WHITE BLOOD COUNT 6.7 K/UL (4.8-10.8)
[2019-05-01 07:49] LABS: ANION GAP 5 mmol/L (5-15); BLOOD UREA NITROGEN 20 mg/dL (7-18); CALCIUM 9.1 MG/DL (8.5-10.1); CARBON DIOXIDE 30 MMOL/L (21-32); CHLORIDE 107 MMOL/L (98-107); CREATININE 0.8 MG/DL (0.55-1.30); POTASSIUM 4.3 MMOL/L (3.5-5.1); SODIUM 142 MMOL/L (136-145)
[2019-05-01 08:00] VITALS: BP 127/86
[2019-05-01] MEDS ORDERED: Metoprolol Tartrate 50mg tab ORAL SCH (09:00)
[2019-05-01] MEDS ORDERED: Furosemide 40mg tab ORAL SCH (09:00)
[2019-05-01] MEDS: Lisinopril 2.5mg tab ORAL SCH (09:44)
[2019-05-01] MEDS: Eliquis 5mg tablet ORAL SCH ×2 (09:44→17:34)
[2019-05-01] MEDS: Thiamine 100mg tab ORAL SCH (09:45)
[2019-05-01] MEDS: Spironolactone 25mg tab ORAL SCH (09:45)
[2019-05-01] MEDS: chlordiazePOXIDE 25mg Cap ORAL SCH ×3 (09:46→17:33)
[2019-05-01 12:00] VITALS: BP 130/90
--- NOTE | 2019-05-01 12:05 | CDS Physician Query ---
Clarification is required for compliance, coding accuracy, and to reflect severity of illness for this patient Dear Dr. Maye Samano Date: 05/01/2019 Kiln Operator Helper/CDS Name: Sisi Howard Clinical documentation states: 64 yo M with medical history of Etoh abuse is admitted for Etoh withdrawal...CHF w systolic and diastolic dysfunction Treatment: IV lasix Kindly specify the acuity of the chf. PHYSICIAN RESPONSE: [X] Acute systolic and diastolic chf [] Acute on chronic systolic and diastolic chf [] Chronic systolic and diastolic chf [] Other: [] Clinically Undetermined Present on Admission: [X] Yes [] No [] Clinically Undetermined Maye Samano Physician signature Date 05/02/19 Please also document in your Progress Notes and/or Discharge Summary and indicate if the condition was present on admission. KEYA
[2019-05-01 16:00] VITALS: BP 109/82
[2019-05-01] MEDS ORDERED: Metoprolol 25mg tab ORAL SCH (17:30)
[2019-05-01 20:00] VITALS: BP_SYST 110; BP_SYST 118; BP_SYST 122; BP_DIAS 70; BP_DIAS 80; BP_DIAS 81
[2019-05-01] MEDS: Atorvastatin 20mg tab ORAL SCH (21:02)
[2019-05-02] VITALS: BP 103/76
[2019-05-02 04:00] VITALS: BP 112/61
[2019-05-02 07:25] LABS: BASOPHILS % (AUTO) 0.7 % (0.0-2.0); EOSINOPHILS % (AUTO) 5.5 % (0.0-3.0); HEMATOCRIT 38.2 % (42.0-52.0); HEMOGLOBIN 12.7 G/DL (14.2-18.0); LYMPHOCYTES % (AUTO) 34.2 % (20.0-45.0); MEAN CORPUSCULAR VOLUME 98 FL (80-99); MONOCYTES % (AUTO) 10.3 % (1.0-10.0); NEUTROPHILS % (AUTO) 49.4 % (45.0-75.0); PLATELET COUNT 208 K/UL (150-450); RED BLOOD COUNT 3.92 M/UL (4.70-6.10); RED CELL DISTRIBUTION WIDTH 14.7 % (11.6-14.8); WHITE BLOOD COUNT 6.5 K/UL (4.8-10.8)
[2019-05-02 07:36] LABS: BLOOD UREA NITROGEN 23 mg/dL (7-18); CALCIUM 9.1 MG/DL (8.5-10.1); CHLORIDE 105 MMOL/L (98-107); CREATININE 0.8 MG/DL (0.55-1.30)
[2019-05-02 08:00] VITALS: BP 110/64
[2019-05-02 08:00] LABS: ANION GAP 4 mmol/L (5-15); CARBON DIOXIDE 29 MMOL/L (21-32); POTASSIUM 3.8 MMOL/L (3.5-5.1); SODIUM 138 MMOL/L (136-145)
[2019-05-02] MEDS: chlordiazePOXIDE 25mg Cap ORAL SCH (08:50)
[2019-05-02] MEDS: Furosemide 40mg tab ORAL SCH (08:50)
[2019-05-02] MEDS: Spironolactone 25mg tab ORAL SCH (08:50)
[2019-05-02] MEDS: Lisinopril 2.5mg tab ORAL SCH (08:50)
[2019-05-02] MEDS: Eliquis 5mg tablet ORAL SCH ×2 (08:51→18:03)
[2019-05-02] MEDS: Thiamine 100mg tab ORAL SCH (08:51)
[2019-05-02] MEDS: dilTIAZem HCl 30mg tab ORAL SCH ×3 (09:00→21:09)
[2019-05-02] MEDS ORDERED: dilTIAZem HCl 30mg tab ORAL PRN (09:15)
[2019-05-02 12:00] VITALS: BP 107/62
[2019-05-02] MEDS ORDERED: Lactulose 20gm/30ml UDC ORAL SCH (12:45)
--- NOTE | 2019-05-02 14:08 | General Progress Note ---
Assessment/Plan Status: stable Assessment/Plan: 64 yo M with medical history of Etoh abuse is admitted for Etoh withdrawal # Dizziness on standing 2/2 medication induced vs orthostatic, r/o stroke - dc librium - symptoms occur on standing, however negative orthostatics - f/u MRI brain without contrast - may need to change medication regimen and hold lasix, ctm # Etoh withdrawal - IVF given in ed, will hold off on more given CHF - seizure precautions - monitor vitals - Psyche consult - psyche reqs for librium noted -> wean off # afib rvr - Cardiology consult - cont hep gtt, transition to NOAC - HR control per cards - change mtl from 75 to 100 bid, continue cardizem 30 scheduled (order not followed through, correct today) # CHF w systolic and diastolic dysfunction - cards consult as above - tte shows ef 20-30% - needs outpatient cath - cardiac meds: bb, asa (ok to hold on hep), statin, acei, nitro prn - check lipid panel - changes lasix 40 mg IV BID to 40 mg po daily - seen by life vest yesterday and fitted # Hypervolemic Hypernatremia- resolved - s/p IVF in ED # Dispo - PT for clearance # Full code - discussed code status with patient - dispo per sw and cm Subjective Date patient seen: May 02, 2019 Time patient seen: 12:00 ROS Limited/Unobtainable: No Allergies: Coded Allergies: No Known Allergies (Unverified , 09/29/16) Subjective complains of dizziness on standing dizzy with PT also denies sense of room spinning no focal neurologic signs on exam Objective Last 24 Hour Vital Signs Date Time Temp Pulse Resp B/P (MAP) Pulse Ox O2 Delivery O2 Flow Rate FiO2 05/02/19 12:04 102 05/02/19 12:00 96.6 102 18 107/62 (77) 95 05/02/19 11:25 102 05/02/19 11:19 104 05/02/19 11:14 102 05/02/19 09:00 Nasal Cannula 2.0 05/02/19 09:00 102 101/74 05/02/19 08:51 106 107/64 05/02/19 08:50 107/64 05/02/19 08:00 96.6 104 18 110/64 (79) 95 05/02/19 07:32 108 05/02/19 04:00 94 05/02/19 04:00 97.5 104 20 112/61 (78) 97 05/02/19 00:00 98.1 103 20 103/76 (85) 95 05/02/19 00:00 103 05/01/19 21:02 110 129/68 05/01/19 21:00 Nasal Cannula 2.0 05/01/19 20:00 106 05/01/19 20:00 98.1 105 20 110/81 (91) 98 05/01/19 17:34 115 109/82 05/01/19 16:00 98.4 115 20 109/82 (91) 96 05/01/19 15:41 108 Intake and Output 05/01/19 05/02/19 19:00 07:00 Intake Total 940 ml 460 ml Balance 940 ml 460 ml Intake Oral 940 ml 460 ml # Voids 4 4 Laboratory Tests 05/02/19 06:01: White Blood Count 6.5, Red Blood Count 3.92L, Hemoglobin 12.7L, Hematocrit 38.2L , Mean Corpuscular Volume 98, Mean Corpuscular Hemoglobin 32.3H, Mean Corpuscular Hemoglobin Concent 33.1, Red Cell Distribution Width 14.7, Platelet Count 208, Mean Platelet Volume 5.4L, Neutrophils (%) (Auto) 49.4, Lymphocytes ( %) (Auto) 34.2, Monocytes (%) (Auto) 10.3H, Eosinophils (%) (Auto) 5.5H, Basophils (%) (Auto) 0.7, Sodium Level 138, Potassium Level 3.8, Chloride Level 105, Carbon Dioxide Level 29, Anion Gap 4L, Blood Urea Nitrogen 23H, Creatinine 0.8, Estimat Glomerular Filtration Rate > 60, Glucose Level 105, Calcium Level 9.1 Height (Feet): 5 Height (Inches): 6.00 Weight (Pounds): 185 Objective GEN: WDWN, NAD, Alert ad Oriented HEENT: PERRLA, EOMI, no icterus NECK: soft non tender CV: tachy, no m/r/g, no jvd RESP: No w/r/c, CTAB ABD: soft, bowel sounds present, non tender to palpation EXT: non tender, normal muscle bulk NEURO: nose to finger smooth and accurate bl, haroldo mariscal, CN II-XII intact gait is guarded and shuffling Maye Samano DO May 02, 2019 14:08
--- NOTE | 2019-05-02 14:38 | Diagnostic Imaging Report ---
Indication: Dizziness, altered mental status Technique: MRI the brain performed utilizing T1 sagittal, T2 axial, T1 FLAIR axial, T2 FLAIR axial, T2*GRE and diffusion axial images without gadolinium. Comparison: None. Specifically. No prior head CT available for comparison. Findings: No diffusion abnormalities are seen on diffusion weighted imaging. No focal signal dropout noted on GRE to suggest acute intracranial hemorrhage. The sulci, ventricles and cisterns are within normal limits for age. Minimal periventricular white matter T2 hyperintensity is seen without mass effect. There is no shift of midline structures. No significant extra-axial collections of fluid or blood are demonstrated. The sella and parasellar regions are grossly unremarkable. Expected signal flow voids are seen of the vessels of the skull base. Visualized mastoid air cells and paranasal sinuses are unremarkable. No focal bony calvarium or soft tissue lesions are seen. IMPRESSION: No acute intracranial abnormality. Specifically no evidence of acute infarct as questioned clinically.
[2019-05-02 16:00] VITALS: BP 122/90
[2019-05-02 20:00] VITALS: BP 129/73
[2019-05-02] MEDS: Atorvastatin 20mg tab ORAL SCH (21:08)
[2019-05-03] VITALS: BP 120/88
[2019-05-03 04:00] VITALS: BP 112/71
[2019-05-03] MEDS: dilTIAZem HCl 30mg tab ORAL SCH ×3 (06:27→22:13)
[2019-05-03 08:00] VITALS: BP 133/85
[2019-05-03] MEDS: Eliquis 5mg tablet ORAL SCH ×2 (08:56→17:30)
[2019-05-03] MEDS: Furosemide 40mg tab ORAL SCH (08:56)
[2019-05-03] MEDS: Spironolactone 25mg tab ORAL SCH (08:56)
[2019-05-03] MEDS: Thiamine 100mg tab ORAL SCH (08:56)
[2019-05-03] MEDS: Lisinopril 2.5mg tab ORAL SCH (08:57)
[2019-05-03 12:00] VITALS: BP 108/73
[2019-05-03 16:00] VITALS: BP 110/76
[2019-05-03 20:00] VITALS: BP 101/68
[2019-05-03] MEDS: Atorvastatin 20mg tab ORAL SCH (20:53)
--- NOTE | 2019-05-03 22:56 | General Progress Note ---
Assessment/Plan Status: stable Assessment/Plan: 64 yo M with medical history of Etoh abuse is admitted for Etoh withdrawal # Dizziness on standing 2/2 medication induced vs orthostatic, r/o stroke - dc librium - symptoms occur on standing, however negative orthostatics - f/u MRI brain without contrast: negative - carotid US non significant plaques - may need to change medication regimen and hold lasix, ctm # Etoh withdrawal - IVF given in ed, will hold off on more given CHF - seizure precautions - monitor vitals - Psyche consult # afib rvr - Cardiology consult - cont hep gtt, transition to NOAC - HR control per cards - change mtl from 75 to 100 bid, continue cardizem 30 scheduled (order not followed through, correct today) # CHF w systolic and diastolic dysfunction - cards consult as above - tte shows ef 20-30% - needs outpatient cath - cardiac meds: bb, asa (ok to hold on hep), statin, acei, nitro prn - check lipid panel - changes lasix 40 mg IV BID to 40 mg po daily - seen by life vest yesterday and fitted # Hypervolemic Hypernatremia- resolved - s/p IVF in ED # Dispo - PT for clearance # Full code - discussed code status with patient - dispo per sw and cm Subjective Date patient seen: May 03, 2019 Time patient seen: 11:30 ROS Limited/Unobtainable: No Allergies: Coded Allergies: No Known Allergies (Unverified , 09/29/16) Subjective dizziness has improved HR improved brain mri and carotid us are negative Objective Last 24 Hour Vital Signs Date Time Temp Pulse Resp B/P (MAP) Pulse Ox O2 Delivery O2 Flow Rate FiO2 05/03/19 22:13 81 119/75 05/03/19 21:00 Nasal Cannula 2.0 05/03/19 20:52 84 101/68 05/03/19 20:00 79 05/03/19 20:00 98.0 84 18 101/68 (79) 97 05/03/19 16:00 97.5 78 20 110/76 (87) 98 05/03/19 16:00 79 05/03/19 13:45 78 108/73 05/03/19 12:00 78 05/03/19 12:00 97.2 78 18 108/73 (85) 97 05/03/19 09:00 Nasal Cannula 2.0 05/03/19 08:57 133/85 05/03/19 08:56 77 133/85 05/03/19 08:00 98.1 77 20 133/85 (101) 95 05/03/19 08:00 78 05/03/19 06:27 86 118/70 05/03/19 04:00 97.7 77 18 112/71 (85) 97 05/03/19 04:00 77 05/03/19 00:00 98.1 77 16 120/88 (99) 98 05/03/19 00:00 77 Intake and Output 05/02/19 05/03/19 19:00 07:00 Intake Total 143 ml Balance 143 ml Intake Oral 143 ml # Voids 3 Height (Feet): 5 Height (Inches): 6.00 Weight (Pounds): 190 Objective GEN: WDWN, NAD, Alert ad Oriented HEENT: PERRLA, EOMI, no icterus NECK: soft non tender CV: RRR no m/r/g, no jvd RESP: No w/r/c, CTAB ABD: soft, bowel sounds present, non tender to palpation EXT: non tender, normal muscle bulk NEURO: nose to finger smooth and accurate bl, haroldo mariscal, CN II-XII intact gait is guarded and shuffling Maye Samano DO May 03, 2019 22:56
[2019-05-04] VITALS: BP 114/83
[2019-05-04 04:00] VITALS: BP 111/79
[2019-05-04] MEDS: dilTIAZem HCl 30mg tab ORAL SCH (05:40)
[2019-05-04 08:00] VITALS: BP 138/75
[2019-05-04] MEDS: Lisinopril 2.5mg tab ORAL SCH (08:24)
[2019-05-04] MEDS: Spironolactone 25mg tab ORAL SCH (08:24)
[2019-05-04] MEDS: Furosemide 40mg tab ORAL SCH (08:24)
[2019-05-04] MEDS: Eliquis 5mg tablet ORAL SCH (08:24)
[2019-05-04] MEDS: Thiamine 100mg tab ORAL SCH (08:24)
[2019-05-04] MEDS ORDERED: METOPROLOL TAR100 M1 ORAL (11:06)
[2019-05-04] MEDS ORDERED: ELIQUIS5 MG ORAL (11:06)
[2019-05-04] MEDS ORDERED: FUROSEMIDE20 M1 ORAL (11:06)
[2019-05-04] MEDS ORDERED: SPIRONOLACTONE25 MG ORAL (11:06)
[2019-05-04] MEDS ORDERED: VITAMIN B-1100 M2 ORAL (11:06)
[2019-05-04] MEDS ORDERED: CARDIZEM30 MG ORAL (11:06)
[2019-05-04] MEDS ORDERED: ZESTRIL2.5 MG ORAL (11:06)
[2019-05-04] MEDS ORDERED: LIPITOR20 MG ORAL (11:06)
[2019-05-04] MEDS ORDERED: FOLIC ACID1 MG ORAL (11:06)
[2019-05-04] MEDS ORDERED: ULTRA-LIGHT RO1 EACH MC (11:08)
--- NOTE | 2019-05-04 11:10 | Discharge Instructions ---
Discharge Instructions Discharge Instructions Follow up with: Call to follow up with Dr. Daigle, Cardiology [phone] Services at Discharge: home health services Diet: cardiac 2 GM Na, low fat Resume Normal Activity?: Yes Activity: as tolerated For Surgical Patients Contact your physician for: bleeding, pain, tenderness, redness, swelling For Congestive Heart Failure Reminder Report to your physician any weight gain of 5 pounds or more in one week. Maye Samano DO May 04, 2019 11:10
--- NOTE | 2019-05-04 11:15 | Discharge Summary ---
Discharge Summary Hospital Course Date of Admission Apr 28, 2019 at 21:16 Date of Discharge 05/04/19 Admitting Diagnosis tachycardia, alcohol withdrawal Reason for Hospitalization: afib w rvr and etoh withdrawal HPI Elliot Paige is a 64 year old male who was admitted on Apr 28, 2019 at 21:16 for Tachycardia/Alcohol Withdrawl Patient admits to drinking heavily .He has problems with his gf leaving [place] for someone else, but wants to get better. Hospital Course 64 yo M with medical history of Etoh abuse is admitted for Etoh withdrawal was admitted w IVF, librium taper , ativan prn, thiamine and folate. Patient was found to have ef of 20 % on echo. He was evaluated by cardiology and started on cardiac meds for his CHF as well as medications for HR control and anticoagulation for Afib. He was evaluated and fitted for a lifevest and instructed to follow up outpatient with Cardiology to [facility]. Patient experienced some dizziness w negative MRI and carotid u/s. He was discharged home with home health and a walker. Discharge Medications New Medications: Walker (Ultra-Light Rollator) 1 Each Each EACH , #1 0 Refills Apixaban (Eliquis) 5 Mg Tablet 5 MG ORAL BID for 30 Days, #60 TAB 0 Refills Atorvastatin Calcium* (Lipitor*) 20 Mg Tablet 40 MG ORAL BEDTIME, #30 TAB 0 Refills Diltiazem HCl (Diltiazem 12Hr ER) 60 Mg Cap.er.12h 30 MG ORAL Q8HR, #90 CAP 0 Refills Folic Acid* (Folic Acid*) 1 Mg Tablet 1 MG ORAL DAILY, #30 TAB Furosemide* (Lasix*) 20 Mg Tablet 20 MG ORAL DAILY, #30 TAB 0 Refills Lisinopril* (Zestril*) 2.5 Mg Tablet 2.5 MG ORAL DAILY, #30 TAB 0 Refills Metoprolol Tartrate* (Metoprolol Tartrate*) 100 Mg Tablet 100 MG ORAL Q12HR, #60 TAB 0 Refills Spironolactone* (Aldactone*) 25 Mg Tablet 25 MG ORAL DAILY, #30 TAB 0 Refills Thiamine Mononitrate (Vitamin B-1) 100 Mg Tablet 100 MG ORAL DAILY, #30 TAB 0 Refills Discharge Condition Upon Discharge: stable Discharge Disposition Patient was discharged to home [facility] Discharge Diagnoses: (1) CHF (congestive heart failure) (2) Afib (3) Tachycardia (4) ETOH abuse Discharge Instructions Discharge Instructions Follow up with: Call to follow up with Dr. Daigle, Cardiology [phone] Services Upon Discharge: home health services Activity: as tolerated For Surgical Patients Contact your physician for: bleeding, pain, tenderness, redness, swelling Maye Samano DO May 04, 2019 11:15
[2019-05-04 12:00] VITALS: BP 114/75
== END 2019-05-04 14:35 | disposition home or self-care (01) | DRG 775 ==
LOC: EMR 20:15 → 2E 21:16 → EDBEDREQ 22:28 → 2E 23:00
DX: F10.239 Alcohol dependence with withdrawal, unspecified (principal); F10.188 Alcohol abuse with other alcohol-induced disorder; E87.0 Hyperosmolality and hypernatremia; I42.6 Alcoholic cardiomyopathy; I50.41 Acute combined systolic (congestive) and diastolic (congestive) heart failure; I11.0 Hypertensive heart disease with heart failure; I48.91 Unspecified atrial fibrillation; I34.0 Nonrheumatic mitral (valve) insufficiency; I42.8 Other cardiomyopathies
CPT/HCPCS: 36415; 70551; 71045; 80048; 80053; 80061; 80307; 80329; 81001; 82550; 82553; 83735; 83880; 84484; 85025; 85610; 85730; 86850; 86900; 86901; 93005; 93306; 93880; 96361; 96374; 96375; 96376; 99285; J2405

== ENCOUNTER → 2020-06-26 | Emergency (ER) | payer MEDICAID ==
[~2020-06-26] VITALS: Ht 165.1 cm; Wt 81.6 kg
[~2020-06-26] MED LIST changes: +CARDIZEM30 MG ORAL; +DiphenhydrAMINE 50mg/ml Inj IVP ONE; +ELIQUIS5 MG ORAL; +FOLIC ACID1 MG ORAL; +FUROSEMIDE20 M1 ORAL; +LIPITOR20 MG ORAL; +LORazepam Inj 2mg/ml 1ml IV ONE; +METOPROLOL TAR100 M1 ORAL; +Metoclopramide 10mg/2ml Inj IVP ONE; +Pantoprazole Inj IVP ONE; +SPIRONOLACTONE25 MG ORAL; +Thiamine HCl 100 MG in D5W 55 ML IVPB STA; +ULTRA-LIGHT RO1 EACH MC; +VITAMIN B-1100 M2 ORAL; +ZESTRIL2.5 MG ORAL
[2020-06-26 11:20] VITALS: BP 146/79
--- NOTE | 2020-06-26 11:24 | NUR ---
ED Nurse Note: Patient from home and walked in due to abd pain x2 months. Patient reports drinking alcohol x 6 months and last drink was this morning with 3 cans of beer. Patient also states he vomited blood ocassionally. AAO x,4 ambulatory with non labored brathing. No active vomiting upon ED arrival but pt smells like vomit and alcohol.
--- NOTE | 2020-06-26 11:31 | Emergency Room Report ---
History of Present Illness General Chief Complaint: Abdominal Pain Source: Patient (Stephen Oro MD) Present Illness HPI Patient presents with recurrent vomiting, epigastric pain and chest pain. He drinks 10 beers a day. He states that he has been throwing up some blood. He denies melena. He does have loose stools on occasion. When he stops drinking he gets the shakes. His last alcohol ingestion was earlier this morning. He complains about chest pain that somewhat exertional. It is more when he is vomiting that he has pain. The pain in his stomach and chest are rated 9/10. The patient denies seizures in the past. No fevers, chills, sore throat, dysuria, shortness of breath, joint pain, rashes, visual changes, dizziness, headache. The patient is also been admitted in the past for GI bleeding. Patient last admitted to the hospital April 2019 for alcohol withdrawal and atrial fibrillation. 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: No (Stephen Oro MD) Patient History Past Medical History: see triage record, old chart reviewed Social History: Reports: alcohol use Social History Narrative born in [facility], lives with girlfriend Reviewed Nursing Documentation: PMH: Agreed; PSxH: Agreed (Stephen Oro MD) Nursing Documentation-PMH Past Medical History: No History, Except For Hx Hypertension: Yes Hx Cancer: No Hx Gastrointestinal Problems: No Hx Neurological Problems: No (Stephen Oro MD) Review of Systems All Other Systems: negative except mentioned in HPI (Stephen Oro MD) Physical Exam Vital Signs Date Time Temp Pulse Resp B/P (MAP) Pulse Ox O2 Delivery O2 Flow Rate FiO2 06/26/20 11:04 98.1 102 19 143/100 (114) 98 Room Air Sp02 EP Interpretation: reviewed, normal General Appearance: no apparent distress, GCS 15, other - Slight spider habitus and alcohol on breath Head: normocephalic, atraumatic Eyes: bilateral eye PERRL, bilateral eye EOMI, bilateral eye Scleral Injection ENT: normal pharynx, moist mucus membranes - No lingual macerations, other - Parotid enlargement Neck: full range of motion, supple Respiratory: chest non-tender, lungs clear, normal breath sounds Cardiovascular #1: normal peripheral pulses, regular rate, rhythm Cardiovascular #2: 2+ radial (R) Gastrointestinal: normal inspection, normal bowel sounds, no rebound, guarding - Minimal, tenderness - Epigastric, overweight Genitourinary: no CVA tenderness Musculoskeletal: back normal, normal range of motion, no calf tenderness Neurologic: alert, motor strength/tone normal, oriented x3, sensory intact Psychiatric: anxious Skin: warm/dry, other - Plethoric (Stephen Oro MD) Medical Decision Making Diagnostic Impression: Primary Impression: Gastritis Qualified Codes: K29.20 - Alcoholic gastritis without bleeding Additional Impressions: Alcohol abuse Alcohol withdrawal Qualified Codes: F10.239 - Alcohol dependence with withdrawal, unspecified ER Course Patient presents with nausea vomiting epigastric pain and chest pain. Differential includes acute myocardial infarction, upper GI bleed, gastritis, pancreatitis, peptic ulcer disease amongst others. The patient is at risk for alcohol withdrawal. Evaluation with EKG, chest x-ray and labs. Patient placed on a shank sander. Patient given IV hydration, Reglan, Benadryl, Pepcid and thiamine. EKG without injury and ectopy. Frequent PVCs on monitor. CBC essentially normal. Slight elevation of LFTs. Elevated BAL. No more vomiting but still with abdominal pain. Patient with elevated blood alcohol and beginning to feel tremulous. Concern of impending withdrawal. Admit telemetry with impending withdrawal. Patient signed out to Dr. Méndez. Laboratory Tests Test 06/26/20 11:30 06/26/20 11:39 White Blood Count 7.4 K/UL (4.8-10.8) Red Blood Count 4.48 M/UL (4.70-6.10) L Hemoglobin 14.4 G/DL (14.2-18.0) Hematocrit 41.3 % (42.0-52.0) L Mean Corpuscular Volume 92 FL (80-99) Mean Corpuscular Hemoglobin 32.2 PG (27.0-31.0) H Mean Corpuscular Hemoglobin Concent 35.0 G/DL (32.0-36.0) Red Cell Distribution Width 13.8 % (11.6-14.8) Platelet Count 293 K/UL (150-450) Mean Platelet Volume 5.4 FL (6.5-10.1) L Neutrophils (%) (Auto) 54.6 % (45.0-75.0) Lymphocytes (%) (Auto) 26.2 % (20.0-45.0) Monocytes (%) (Auto) 13.2 % (1.0-10.0) H Eosinophils (%) (Auto) 0.3 % (0.0-3.0) Basophils (%) (Auto) 5.8 % (0.0-2.0) H Prothrombin Time 11.0 SEC (9.30-11.50) Prothrombin Time INR 1.0 (0.9-1.1) Activated Partial Thromboplast Time 28 SEC (23-33) Sodium Level 136 MMOL/L (136-145) Potassium Level 3.8 MMOL/L (3.5-5.1) Chloride Level 99 MMOL/L (98-107) Carbon Dioxide Level 26 MMOL/L (21-32) Anion Gap 11 mmol/L (5-15) Blood Urea Nitrogen 4 mg/dL (7-18) L Creatinine 0.8 MG/DL (0.55-1.30) Estimated Glomerular Filtration Rate > 60 mL/min (>60) Glucose Level 122 MG/DL (74-106) H Calcium Level 8.4 MG/DL (8.5-10.1) L Total Bilirubin 0.3 MG/DL (0.2-1.0) Aspartate Amino Transferase (AST) 113 U/L (15-37) H Alanine Aminotransferase (ALT) 80 U/L (12-78) H Alkaline Phosphatase 71 U/L (46-116) Total Creatine Kinase 79 U/L (26-308) Troponin I 0.008 ng/mL (0.000-0.056) Total Protein 8.0 G/DL (6.4-8.2) Albumin 3.3 G/DL (3.4-5.0) L Globulin 4.7 g/dL Albumin/Globulin Ratio 0.7 (1.0-2.7) L Lipase 205 U/L (73-393) Serum Alcohol 213 mg/dL Urine Color Pale yellow Urine Appearance Clear Urine pH 6 (4.5-8.0) Urine Specific Clio 1.010 (1.005-1.035) Urine Protein Negative (NEGATIVE) Urine Glucose (UA) Negative (NEGATIVE) Urine Ketones Negative (NEGATIVE) Urine Blood Negative (NEGATIVE) Urine Nitrite Negative (NEGATIVE) Urine Bilirubin Negative (NEGATIVE) Urine Urobilinogen Normal MG/DL (0.0-1.0) Urine Leukocyte Esterase Negative (NEGATIVE) Urine Opiates Screen Negative (NEGATIVE) Urine Barbiturates Screen Negative (NEGATIVE) Phencyclidine (PCP) Screen Negative (NEGATIVE) Urine Amphetamines Screen Negative (NEGATIVE) Urine Benzodiazepines Screen Negative (NEGATIVE) Urine Cocaine Screen Negative (NEGATIVE) Urine Marijuana (THC) Screen Negative (NEGATIVE) (Stephen Oro MD) ER Course Patient is a 65-year-old male endorsed me by Dr. Oro. Patient was noted to have some history of prior alcohol abuse and appears to have some history of GI bleeding. Patient's hemoglobin was noted to be stable. He was noted to have some frequent cardiac arrhythmia. Patient was noted to be intoxicated with alcohol. Patient was given additional IV magnesium due to the arrhythmia. Dr. Brandon was contacted for capitated facility transfer. He agrees to accept the patient. Did not appear to have any evidence of active bleeding at this time. Patient is currently stable for transfer. Labs Test 06/26/20 11:30 06/26/20 11:39 White Blood Count 7.4 K/UL (4.8-10.8) Red Blood Count 4.48 M/UL (4.70-6.10) Hemoglobin 14.4 G/DL (14.2-18.0) Hematocrit 41.3 % (42.0-52.0) Mean Corpuscular Volume 92 FL (80-99) Mean Corpuscular Hemoglobin 32.2 PG (27.0-31.0) Mean Corpuscular Hemoglobin Concent 35.0 G/DL (32.0-36.0) Red Cell Distribution Width 13.8 % (11.6-14.8) Platelet Count 293 K/UL (150-450) Mean Platelet Volume 5.4 FL (6.5-10.1) Neutrophils (%) (Auto) 54.6 % (45.0-75.0) Lymphocytes (%) (Auto) 26.2 % (20.0-45.0) Monocytes (%) (Auto) 13.2 % (1.0-10.0) Eosinophils (%) (Auto) 0.3 % (0.0-3.0) Basophils (%) (Auto) 5.8 % (0.0-2.0) Prothrombin Time 11.0 SEC (9.30-11.50) Prothromb Time International Ratio 1.0 (0.9-1.1) Activated Partial Thromboplast Time 28 SEC (23-33) Sodium Level 136 MMOL/L (136-145) Potassium Level 3.8 MMOL/L (3.5-5.1) Chloride Level 99 MMOL/L (98-107) Carbon Dioxide Level 26 MMOL/L (21-32) Anion Gap 11 mmol/L (5-15) Blood Urea Nitrogen 4 mg/dL (7-18) Creatinine 0.8 MG/DL (0.55-1.30) Estimat Glomerular Filtration Rate > 60 mL/min (>60) Glucose Level 122 MG/DL (74-106) Calcium Level 8.4 MG/DL (8.5-10.1) Total Bilirubin 0.3 MG/DL (0.2-1.0) Aspartate Amino Transf (AST/SGOT) 113 U/L (15-37) Alanine Aminotransferase (ALT/SGPT) 80 U/L (12-78) Alkaline Phosphatase 71 U/L (46-116) Total Creatine Kinase 79 U/L (26-308) Troponin I 0.008 ng/mL (0.000-0.056) Total Protein 8.0 G/DL (6.4-8.2) Albumin 3.3 G/DL (3.4-5.0) Globulin 4.7 g/dL Albumin/Globulin Ratio 0.7 (1.0-2.7) Lipase 205 U/L (73-393) Serum Alcohol 213 mg/dL Urine Color Pale yellow Urine Appearance Clear Urine pH 6 (4.5-8.0) Urine Specific Clio 1.010 (1.005-1.035) Urine Protein Negative (NEGATIVE) Urine Glucose (UA) Negative (NEGATIVE) Urine Ketones Negative (NEGATIVE) Urine Blood Negative (NEGATIVE) Urine Nitrite Negative (NEGATIVE) Urine Bilirubin Negative (NEGATIVE) Urine Urobilinogen Normal MG/DL (0.0-1.0) Urine Leukocyte Esterase Negative (NEGATIVE) Urine Opiates Screen Negative (NEGATIVE) Urine Barbiturates Screen Negative (NEGATIVE) Phencyclidine (PCP) Screen Negative (NEGATIVE) Urine Amphetamines Screen Negative (NEGATIVE) Urine Benzodiazepines Screen Negative (NEGATIVE) Urine Cocaine Screen Negative (NEGATIVE) Urine Marijuana (THC) Screen Negative (NEGATIVE) (Alex Méndez MD) EKG Diagnostic Results Rate: normal Rhythm: NSR ST Segments: no acute changes (Stephen Oro MD) Rate: normal (Alex Méndez MD) Rhythm Strip Diag. Results Rhythm: NSR, other - Frequent PVCs on occasion (Stephen Oro MD) Chest X-Ray Diagnostic Results Chest X-Ray Diagnostic Results : Chest X-Ray Ordered: Yes # of Views/Limited/Complete: 1 View Indication: Chest Pain EP Interpretation: Yes Interpretation: no consolidation, no effusion, no pneumothorax Impression: No acute disease Electronically Signed by: Electronically signed by Stephen Oro MD (Stephen Oro MD) Last Vital Signs Date Time Temp Pulse Resp B/P (MAP) Pulse Ox O2 Delivery O2 Flow Rate FiO2 06/26/20 18:47 74 18 160/72 99 06/26/20 18:25 97.9 06/26/20 17:30 Room Air Status: improved (Stephen Oro MD) Status: improved (Alex Méndez MD) Disposition: SHORT-TERM HOSP Condition: Serious Stephen Oro MD Jun 26, 2020 11:31 Alex Méndez MD Jun 26, 2020 16:28
--- NOTE | 2020-06-26 11:41 | NUR ---
ED Nurse Note: Collected blood and urine then sent.
[2020-06-26 11:49] LABS: BASOPHILS % (AUTO) 5.8 % (0.0-2.0); EOSINOPHILS % (AUTO) 0.3 % (0.0-3.0); HEMATOCRIT 41.3 % (42.0-52.0); HEMOGLOBIN 14.4 G/DL (14.2-18.0); LYMPHOCYTES % (AUTO) 26.2 % (20.0-45.0); MEAN CORPUSCULAR VOLUME 92 FL (80-99); MONOCYTES % (AUTO) 13.2 % (1.0-10.0); NEUTROPHILS % (AUTO) 54.6 % (45.0-75.0); PLATELET COUNT 293 K/UL (150-450); RED BLOOD COUNT 4.48 M/UL (4.70-6.10); RED CELL DISTRIBUTION WIDTH 13.8 % (11.6-14.8); WHITE BLOOD COUNT 7.4 K/UL (4.8-10.8)
[2020-06-26 11:50] LABS: APPEARANCE,URINE CLEAR; BILIRUBIN, URINE NEGATIVE (NEGATIVE); COLOR,URINE PALE YELLOW; GLUCOSE, URINE (UA) NEGATIVE (NEGATIVE); KETONES,URINE NEGATIVE (NEGATIVE); LEUKOCYTE ESTERASE ,URINE NEGATIVE (NEGATIVE); NITRITE,URINE NEGATIVE (NEGATIVE); PH,URINE 6 (4.5-8.0); PROTEIN,URINE NEGATIVE (NEGATIVE); UROBILINOGEN,URINE NORMAL MG/DL (0.0-1.0)
[2020-06-26 12:01] LABS: ANION GAP 11 mmol/L (5-15); BLOOD UREA NITROGEN 4 mg/dL (7-18); CALCIUM 8.4 MG/DL (8.5-10.1); CARBON DIOXIDE 26 MMOL/L (21-32); CHLORIDE 99 MMOL/L (98-107); CREATININE 0.8 MG/DL (0.55-1.30); POTASSIUM 3.8 MMOL/L (3.5-5.1); SODIUM 136 MMOL/L (136-145)
[2020-06-26 12:05] LABS: ALANINE AMINOTRANSFERASE 80 U/L (12-78); ALBUMIN 3.3 G/DL (3.4-5.0); ALBUMIN/GLOBULIN RATIO 0.7 (1.0-2.7); ALKALINE PHOSPHATASE 71 U/L (46-116); ASPARTATE AMINO TRANSFERASE 113 U/L (15-37); BILIRUBIN,TOTAL 0.3 MG/DL (0.2-1.0); CREATINE KINASE 79 U/L (26-308)
--- NOTE | 2020-06-26 12:23 | Diagnostic Imaging Report ---
EXAM: XR Chest, 1 View CLINICAL HISTORY: CP TECHNIQUE: Frontal view of the chest. COMPARISON: Chest x-ray, 04/29/19 FINDINGS: Lungs: Hypoventilatory lungs. Bibasilar lung atelectasis. Lungs otherwise clear. Pleural space: Unremarkable. No pneumothorax. Heart: Mild cardiomegaly. Mediastinum: Unremarkable. Bones/joints: Unremarkable. IMPRESSION: Hypoventilatory lungs. Bibasilar lung atelectasis. Lungs otherwise clear.
[2020-06-26 13:22] VITALS: BP 110/53
--- NOTE | 2020-06-26 13:23 | NUR ---
ED Nurse Note: Patient resting on bed with no distress at this time. Respirations are even and unlabored. IV fluids still running.
--- NOTE | 2020-06-26 14:37 | NUR ---
ED Nurse Note: Patient reports of feeling nauseous. Dr Oro was notified.
[2020-06-26 15:20] VITALS: BP 154/76
[2020-06-26 17:30] VITALS: BP 142/80
--- NOTE | 2020-06-26 19:13 | NUR ---
HAND-OFF: Report given to Jillian CARLISLE.
--- NOTE | 2020-06-26 20:00 | NUR ---
ED Nurse Note: Patient reports recurrent abdominal pain. ERMD informed.
[2020-06-26 21:59] VITALS: BP 156/93
--- NOTE | 2020-06-29 17:09 | Cardiology Report ---
APPROVED REPORT EKG Measurement Heart [id number] <Conclusion> Normal sinus rhythm Normal ECG
== END | disposition short-term general hospital (02) ==
LOC: EMR 11:52
DX: K29.20 Alcoholic gastritis without bleeding (principal); F10.129 Alcohol abuse with intoxication, unspecified; R07.9 Chest pain, unspecified; E66.3 Overweight; Z68.30 Body mass index [BMI] 30.0-30.9, adult; I49.9 Cardiac arrhythmia, unspecified; I11.0 Hypertensive heart disease with heart failure; I50.9 Heart failure, unspecified
CPT/HCPCS: 36415; 71045; 80053; 80307; 81003; 82550; 83690; 84484; 85025; 85610; 85730; 93005; 96365; 96375; 96376; G0480; J1200; J2405; J2765; J7030; S0028; S0164; U0002; Z7502; 99285